=== PATIENT | female | born 1940 | race Caucasian/White ===

== ENCOUNTER 2016-10-04 12:26 | Day surgery (SDC) | payer MEDICARE ==
--- NOTE | 2016-09-27 20:54 | EKG REPORT ---
SEVERITY:- ABNORMAL ECG - ATRIAL-PACED RHYTHM : Confirmed by: Lorelei Galloway MD 27-Sep-2016 20:53:46
[2016-09-28 08:01] LABS: HEMATOCRIT 44.8 % (36.0-47.0); HEMOGLOBIN 14.8 g/dL (12.0-15.5); HGB HCT DIFFERENCE -0.4; MEAN CORPUSCULAR HEMOGLOBIN 30.6 pg (27.0-33.4); MEAN CORPUSCULAR HGB CONC 33.1 g/dL (32.0-36.0); MEAN CORPUSCULAR VOLUME 92 fl (80-97); RED BLOOD COUNT 4.85 10^6/uL (3.72-5.28); RED CELL DISTRIBUTION WIDTH 14.5 % (11.5-14.0); WHITE BLOOD COUNT 7.4 10^3/uL (4.0-10.5)
[2016-09-29 09:37] LABS: BLOOD UREA NITROGEN 24 mg/dL (7-20); CALCIUM 10.8 mg/dL (8.4-10.2); CARBON DIOXIDE 27 mmol/L (22-30); CHLORIDE 105 mmol/L (98-107); CREATININE RESULT 0.89 mg/dL (0.52-1.25); GLUCOSE 94 mg/dL (75-110); POTASSIUM 4.5 mmol/L (3.6-5.0)
[2016-09-29 09:38] LABS: ANION GAP 9 (5-19)
[~2016-10-04 12:26] MED LIST: CIPROFLOXACIN 400 MG/D5W RTU 400 MG/200 ML RTUPB IV PRN; LACTATED RINGERS 1000 ML IV PRN; LIDOCAINE 0.5% INJ-PF (5 MG/ML) 50 ML SDV SUBCUT PRN
[2016-10-04] MEDS ORDERED: LIDOCAINE 1%/EPINEPHRINE INJ 20 ML VIAL ONE (14:50)
[2016-10-04] MEDS ORDERED: MICROFIBRILLAR COLLAGEN 1 GM PACK ONE (14:50)
[2016-10-04] MEDS ORDERED: MIDAZOLAM 2 MG/2 ML INJ ONE (15:34)
[2016-10-04] MEDS ORDERED: FENTANYL CITRATE INJ/PF 100 MCG/2 ML AMPUL ONE (15:34)
[2016-10-04] MEDS ORDERED: PROPOFOL INJ 200 MG/20 ML VIAL IV ONE (15:35)
[2016-10-04] MEDS ORDERED: FENTANYL CITRATE INJ/PF 100 MCG/2 ML AMPUL IV PRN ×3 (16:10)
[2016-10-04] MEDS ORDERED: PROMETHAZINE HCL INJ 25 MG/1 ML VIAL IV PRN ×2 (16:10)
[2016-10-04] MEDS ORDERED: MEPERIDINE HCL/PF INJ 25 MG/1 ML DISP.SYRIN IV PRN (16:10)
[2016-10-04] MEDS ORDERED: DIPHENHYDRAMINE HCL 50 MG/ML VIAL IV PRN (16:10)
--- NOTE | 2016-10-04 16:37 | Operative Report ---
Operative Report DATE OF SURGERY: 10/04/16 PREOPERATIVE DIAGNOSIS: Ectatic left mammary duct, with cystic components POSTOPERATIVE DIAGNOSIS: Same OPERATION: Wedge resection left breast nipple, skin and underlying parenchyma. 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 The patient was then taken to the operating room where LMAC anesthesia was induced. The left arm was abducted, and the left breast prepped and draped in a sterile fashion. Surgical plan and surgical timeout was conducted. Ultrasonography revealed dilated ducts primarily in the 2 3 and 4 o'clock position with cystic components attached. He felt this was the area of disease that warranted resection as the patient was draining from this portion of the nipple. The skin was anesthetized with 1% lidocaine plain we created approximately 4 cm long elliptical incision including the lateral aspect of the left nipple. The diameter Of the skin was approximately 5 mm wide and 4-1/2 cm long. We used a combination of tenotomy and 15 blade to excise a deep triangular shaped wedge of breast parenchyma including the outer lateral aspect of the subareolar tissue and the associated trabeculae of connected cystic disease. This proceeded uneventfully. We terminated the deep resection margin and passed the specimen off to pathology for permanent analysis. Sponge and needle counts are correct. Wound cavity checked for bleeding there was none. An aliquot of Avitene was placed into the recesses of the wound. The nipple and lateral aspect of breast tissue reconstructed with 4-0 Ethilon and 4-0 Vicryl suture. Benzoin Steri-Strips applied. Tolerated the procedure well and taken to recovery room in stable condition. ELVIN Rahman assisted with local anesthetic, tissue extraction of wound and nipple closure.
--- NOTE | 2016-10-04 16:45 | PDOC DISCHARGE SUMMARY ---
Discharge Summary (SDC) - Discharge Final Diagnosis: left breast milk duct excision Date of Surgery: 10/04/16 Discharge Date: 10/04/16 Condition: Stable Treatment or Instructions: [facility] [address], [place] [address] Care Instructions Following Your Lumpectomy Activities: Resume normal activities when you feel comfortable. It is best to remain as active as possible to speed your recovery. It is common to experience some fatigue after surgery and you may find that short naps are helpful. Avoid strenuous activity such as weight lifting, tennis, etc at your surgical site for two weeks. Perform gentle arm exercises daily and do not favor your operative arm to due increased risk of mobility issues postoperatively. No driving for 7 days after surgery. Do not drive if you are taking pain medication other than Tylenol or Ibuprofen. No swimming, tub baths or soaking in a hot tub for 4 weeks. There are no dietary restrictions. Do not smoke as this impairs wound healing. Surgical Site care: Remove your dressing 48 hours after surgery. Leave the steri-strips underneath in place. You may shower after 48 hours, removing the dressing to include washing the wound with soap and water using your hands. Do not scrub the incision. Pat the area dry with a towel. You do not need to recover the wound although some patients find that they feel more comfortable using a light dressing for a few days to absorb any minimal drainage which may occur. If you use a dressing in this manner change it at least every day. Do not use heating pad or apply an ice pack to the operative site. You may apply deodorant if you are careful to avoid getting it on the wound itself. Medications: Take Tylenol every 8 hours around the clock. You may taper this medication as you experience less pain. Take narcotic pain control such as Toradol 10mg every 4-6 hours as needed for pain. Do not take over the counter Ibuprofen or any other NSAID while taking Toradol. Again, you cannot drive while taking narcotic pain medication. Resume all of your normal prescription medications after your surgery unless instructed otherwise. You may experience constipation after surgery while taking pain medications. If using a narcotic on a regular basis, take a stool softener such as Colace twice a day. It is helpful to stay hydrated by drinking lots of fluids. Walking is also helpful and is good exercise after surgery. If you need extra help, use Milk of Magnesia according to the directions on the package. Follow-up: Call our office at to make a follow-up appointment in 10-14 days. Your doctor will call to discuss the pathology report with you as soon as it is available. Concerns: If you had a sentinel lymph node biopsy with your mastectomy, your urine may have a greenish discoloration. This is normal and will resolve as the blue dye slowly leaves your system. If you notice significant leakage around the drains , this is not normal. The drains may be clogged. Please call our office to come in immediately for the drains to be checked. Some bruising may occur and will go away over time. If you have a fever of 101.5 or greater, chills, redness at the incision site, excessive drainage from your wound or severe pain not relieved by pain medication, call your doctor. A physician is available 24 hours a day 7 days a week in addition to regular office hours. If problems arise after normal office hours please call the hospital at . Please call if you have any questions or concerns. Prescriptions: Ketorolac Tromethamine [Toradol 10 mg Tablet] 10 mg PO Q6HP PRN #20 tablet PRN Reason: Discharge Diet: As Tolerated Discharge Activity: Activity As Tolerated Report the Following to Your Physician Immediately: Increase in Pain, Fever over 101 Degrees, Unusual Bleeding, Redness, Swelling, Warmth, Drainage-Foul Smelling
[2016-10-04 18:17] VITALS: BP 126/66
== END 2016-10-04 18:10 | disposition home or self-care (01) ==
LOC: OROUT 12:26
PROVIDERS: ATTEND Surgery
PROC: 0HBU0ZX Excision of Left Breast, Open Approach, Diagnostic (ICD-10-PCS; principal; 2016-10-04 14:15)
DX: N64.52 Nipple discharge (principal); N60.42 Mammary duct ectasia of left breast; N60.32 Fibrosclerosis of left breast; N60.12 Diffuse cystic mastopathy of left breast; I34.1 Nonrheumatic mitral (valve) prolapse; I48.91 Unspecified atrial fibrillation; I12.9 Hypertensive chronic kidney disease with stage 1 through stage 4 chronic kidney disease, or unspecified chronic kidney disease; N18.9 Chronic kidney disease, unspecified; M19.90 Unspecified osteoarthritis, unspecified site; E05.90 Thyrotoxicosis, unspecified without thyrotoxic crisis or storm; Z96.653 Presence of artificial knee joint, bilateral; Z95.0 Presence of cardiac pacemaker; Z85.828 Personal history of other malignant neoplasm of skin; Z88.2 Allergy status to sulfonamides
CPT/HCPCS: 93005; 36415 ×2; 84132; 85027; 80048; 88305 ×2; 93010; 19120; J2250; J3490 ×2; J2704; J0744; 400; J3010

== ENCOUNTER → 2016-10-25 | Outpatient (CLI) | payer MEDICARE ==
[2016-10-25 10:50] LABS: ANION GAP 9 (5-19); BLOOD UREA NITROGEN 23 mg/dL (7-20); CALCIUM 10.2 mg/dL (8.4-10.2); CARBON DIOXIDE 26 mmol/L (22-30); CHLORIDE 106 mmol/L (98-107); CHOLESTEROL 136.66 mg/dL (0-200); CREATININE RESULT 0.93 mg/dL (0.52-1.25); Direct HDL 34 mg/dL (>40); GLUCOSE 92 mg/dL (75-110); POTASSIUM 4.5 mmol/L (3.6-5.0); SODIUM 140.5 mmol/L (137-145); TRIGLYCERIDES 89 mg/dL (<150)
[2016-10-25 11:01] LABS: DIRECT LDL 66 mg/dL (<100)
== END ==
LOC: OD 09:22
PROVIDERS: ATTEND Family Medicine
DX: E78.2 Mixed hyperlipidemia (principal); I10 Essential (primary) hypertension; Z79.899 Other long term (current) drug therapy
CPT/HCPCS: 36415; 80048; 80061; 83036; 84443

== ENCOUNTER → 2016-10-31 | Outpatient (CLI) | payer MEDICARE ==
--- NOTE | 2016-10-31 15:03 | RADIOLOGY REPORT (SQ) ---
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 TECHNIQUE: AP, lateral and oblique weight-bearing radiographic images acquired of the right foot. LIMITATIONS: None. FINDINGS: MINERALIZATION: Normal. BONES: Since the prior films from 11/23/2014, patient has developed osteo necrosis of the 2nd metatars al head, with sclerosis and collapse of the 2nd metatarsal head articular surface. Mild reactive bon y spurring at the base of the 2nd toe proximal phalanx. Mild osteoarthritis with joint space narrowing and bony spurring at the tarsometatarsal and between t he bases of the 2nd through 5th metatarsals. Moderate-sized plantar and dorsal calcaneal spurs. JOINTS: No evidence of tarsal coalition SOFT TISSUES: No soft tissue swelling. No foreign body. OTHER: No other significant finding. 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 TECHNICAL DOCUMENTATION: JOB ID: [id number] [employer]- All Rights Reserved
== END ==
LOC: OD 12:19
PROVIDERS: ATTEND Podiatrist Foot & Ankle Surgery
DX: Q66.9 Congenital deformity of feet, unspecified (principal)

== ENCOUNTER → 2016-11-03 | Outpatient (CLI) | payer MEDICARE ==
[2016-11-03 10:14] LABS: ABSOLUTE BASOPHILS # (AUTO) 0.1 10^3/uL (0.0-0.2); ABSOLUTE EOSINOPHILS # (AUTO) 0.2 10^3/uL (0.0-0.6); ABSOLUTE LYMPHOCYTES (AUTO) 1.5 10^3/uL (0.5-4.7); ABSOLUTE MONOCYTES (AUTO) 0.6 10^3/uL (0.1-1.4); ABSOLUTE NEUT (AUTO) 5.6 10^3/uL (1.7-8.2); BASOPHILS % (AUTO) 0.7 % (0-2); EOSINOPHILS % (AUTO) 2.2 % (0-6); HEMOGLOBIN 14.1 g/dL (12.0-15.5); HGB HCT DIFFERENCE -0.7; LYMPHOCYTES % (AUTO) 18.8 % (13-45); MEAN CORPUSCULAR HEMOGLOBIN 30.3 pg (27.0-33.4); MEAN CORPUSCULAR HGB CONC 32.8 g/dL (32.0-36.0); MEAN CORPUSCULAR VOLUME 92 fl (80-97); RED BLOOD COUNT 4.65 10^6/uL (3.72-5.28); RED CELL DISTRIBUTION WIDTH 14.2 % (11.5-14.0); SEGMENTED NEUTROPHILS % (AUTO) 70.3 % (42-78); WHITE BLOOD COUNT 7.9 10^3/uL (4.0-10.5)
[2016-11-03 10:36] LABS: ANION GAP 10 (5-19); BLOOD UREA NITROGEN 30 mg/dL (7-20); CALCIUM 10.3 mg/dL (8.4-10.2); CARBON DIOXIDE 24 mmol/L (22-30); CHLORIDE 108 mmol/L (98-107); GLUCOSE 96 mg/dL (75-110); POTASSIUM 4.5 mmol/L (3.6-5.0); SODIUM 142.2 mmol/L (137-145)
== END ==
LOC: OD 09:35
PROVIDERS: ATTEND Internal Medicine Nephrology
DX: N18.2 Chronic kidney disease, stage 2 (mild) (principal); E83.52 Hypercalcemia
CPT/HCPCS: 36415; 80048; 82040; 85025

== ENCOUNTER → 2016-11-08 | Outpatient (CLI) | payer MEDICARE ==
[2016-11-08 16:27] LABS: APPEARANCE,URINE SLIGHTLY-CLOUDY; BILIRUBIN,URINE NEGATIVE (NEGATIVE); GLUCOSE, URINE NEGATIVE (NEGATIVE); KETONES,URINE NEGATIVE (NEGATIVE); LEUKOCYTE ESTERASE,URINE LARGE (NEGATIVE); NITRITE,URINE NEGATIVE (NEGATIVE); PROTEIN,URINE NEGATIVE (NEGATIVE); UROBILINOGEN,URINE NEGATIVE mg/dL (<2.0)
[2016-11-08 16:34] LABS: BACTERIA,URINE TRACE /HPF; RBC,URINE 0-1 /HPF
[2016-11-10 11:54] LABS: VITAMIN D 25-HYDROXY 35.4 ng/mL (30.0-100.0)
[2016-11-10 12:38] LABS: CREATININE URINE 56.9 mg/dL (Not Estab.); MICROALBUMIN URINE <3.0 ug/mL (Not Estab.)
== END ==
LOC: OD 15:19
PROVIDERS: ATTEND Internal Medicine Nephrology
DX: N18.2 Chronic kidney disease, stage 2 (mild) (principal); E83.52 Hypercalcemia
CPT/HCPCS: 36415; 81001; 82043; 82306; 82570; 83970; 84100

== ENCOUNTER → 2016-11-24 | Outpatient (CLI) | payer MEDICARE | LOC: OD 14:41 | PROVIDERS: ATTEND Physician Assistant | DX: M17.12 Unilateral primary osteoarthritis, left knee (principal) | CPT/HCPCS: 36415; 85652; 86140 ==

== ENCOUNTER → 2017-06-04 | Outpatient (CLI) | payer MEDICARE ==
[2017-06-04 15:26] LABS: ANION GAP 6 (5-19); BLOOD UREA NITROGEN 33 mg/dL (7-20); CALCIUM 11.1 mg/dL (8.4-10.2); CARBON DIOXIDE 28 mmol/L (22-30); CHLORIDE 106 mmol/L (98-107); GLUCOSE 77 mg/dL (75-110); POTASSIUM 4.4 mmol/L (3.6-5.0); SODIUM 139.5 mmol/L (137-145)
== END ==
LOC: OD 14:14
PROVIDERS: ATTEND Internal Medicine Nephrology
DX: N18.3 Chronic kidney disease, stage 3 (moderate) (principal)
CPT/HCPCS: 36415; 80048

== ENCOUNTER → 2017-08-30 | Outpatient (CLI) | payer MEDICARE ==
[2017-08-30 15:47] LABS: ANION GAP 10 (5-19); BLOOD UREA NITROGEN 26 mg/dL (7-20); CALCIUM 11.2 mg/dL (8.4-10.2); CARBON DIOXIDE 27 mmol/L (22-30); CHLORIDE 105 mmol/L (98-107); GLUCOSE 94 mg/dL (75-110); POTASSIUM 4.1 mmol/L (3.6-5.0); SODIUM 141.9 mmol/L (137-145)
== END ==
LOC: OD 14:45
PROVIDERS: ATTEND Internal Medicine Nephrology
DX: N18.3 Chronic kidney disease, stage 3 (moderate) (principal); E83.52 Hypercalcemia
CPT/HCPCS: 36415; 80048

== ENCOUNTER → 2017-10-25 | Outpatient (CLI) | payer MEDICARE ==
--- NOTE | 2017-10-25 15:12 | RADIOLOGY REPORT (SQ) ---
EXAM DESCRIPTION: CHEST PA/LATERAL COMPLETED DATE/TIME: 10/25/2017 3:04 pm REASON FOR STUDY: COUGH COMPARISON: October 2011 EXAM PARAMETERS: NUMBER OF VIEWS: two views TECHNIQUE: Digital Frontal and Lateral radiographic views of the chest acquired. RADIATION DOSE: NA LIMITATIONS: none FINDINGS: LUNGS AND PLEURA: No opacities, masses or pneumothorax. No pleural effusion. MEDIASTINUM AND HILAR STRUCTURES: No masses or contour abnormalities. HEART AND VASCULAR STRUCTURES: Cardiac silhouette is at the upper limits of normal in size. BONES: No acute findings. HARDWARE: Pool chamber transvenous pacemaker is identified in position. OTHER: No other significant finding. IMPRESSION: NO SIGNIFICANT RADIOGRAPHIC FINDING IN THE CHEST. TECHNICAL DOCUMENTATION: JOB ID: [id number] [employer]- All Rights Reserved Reading location - IP/workstation name: [email or web address]
== END ==
LOC: OD 14:53
PROVIDERS: ATTEND Physician Assistant
DX: R05 Cough (principal)
CPT/HCPCS: 71046

== ENCOUNTER → 2017-11-01 | Outpatient (CLI) | payer MEDICARE ==
[2017-11-01 11:11] LABS: ANION GAP 9 (5-19); BLOOD UREA NITROGEN 31 mg/dL (7-20); CARBON DIOXIDE 30 mmol/L (22-30); CHLORIDE 104 mmol/L (98-107); CHOLESTEROL 147.54 mg/dL (0-200); GLUCOSE 95 mg/dL (75-110); POTASSIUM 4.7 mmol/L (3.6-5.0); SODIUM 142.8 mmol/L (137-145); TRIGLYCERIDES 121 mg/dL (<150)
[2017-11-01 11:22] LABS: DIRECT LDL 71 mg/dL (<100)
== END ==
LOC: OD 10:02
PROVIDERS: ATTEND Family Medicine
DX: E78.2 Mixed hyperlipidemia (principal); I10 Essential (primary) hypertension; Z79.899 Other long term (current) drug therapy
CPT/HCPCS: 36415; 80048; 80061; 83036; 84443

== ENCOUNTER → 2017-11-12 | Outpatient (CLI) | payer MEDICARE ==
--- NOTE | 2017-11-12 17:18 | RADIOLOGY REPORT (SQ) ---
EXAM DESCRIPTION: NM PARATHYROID IMAGING COMPLETED DATE/TIME: 11/12/2017 3:20 pm REASON FOR STUDY: CHRONIC KIDNEY DISEASE, STAGE 2 (MILD) E55.9 VITAMIN D DEFICIENCY, UNSPECIFIED E8 3.52 HYPERCALCEMIA N18.2 CHRONIC KIDNEY DISEASE, STAGE 2 (MILD) COMPARISON: None. RADIONUCLIDE AND DOSE: 20.9 millicuries Tc-99m Sestamibi. The route of agent administration: Intravenous ADDITIONAL DRUGS AND DOSES: None. TECHNIQUE: Early and delayed images of the neck acquired following radionuclide administration. LIMITATIONS: None. FINDINGS: Thyroid: Normal size. Homogeneous activity. Normal washout. No focal lesions. Parathyroid: No retained activity in the thyroid or elsewhere in the neck to indicate a parathyroid a denoma. Other: No other significant findings. IMPRESSION: NORMAL STUDY. NO EVIDENCE OF PARATHYROID ADENOMA. TECHNICAL DOCUMENTATION: JOB ID: [id number] [employer]- All Rights Reserved Reading location - IP/workstation name: [email or web address]
== END ==
LOC: RAD 10:54
PROVIDERS: ATTEND Internal Medicine Nephrology
DX: N18.2 Chronic kidney disease, stage 2 (mild) (principal); E83.52 Hypercalcemia; E55.9 Vitamin D deficiency, unspecified; E21.0 Primary hyperparathyroidism
CPT/HCPCS: 78070; A9500; Q9969

== ENCOUNTER → 2018-01-15 | Outpatient (CLI) | payer MEDICARE ==
[2018-01-15 12:46] LABS: ABSOLUTE LYMPHOCYTES (AUTO) 1.5 10^3/uL (0.5-4.7); ABSOLUTE MONOCYTES (AUTO) 0.7 10^3/uL (0.1-1.4); ABSOLUTE NEUT (AUTO) 8.1 10^3/uL (1.7-8.2); BASOPHILS % (AUTO) 0.4 % (0-2); EOSINOPHILS % (AUTO) 0.1 % (0-6); HEMATOCRIT 42.7 % (36.0-47.0); HEMOGLOBIN 14.5 g/dL (12.0-15.5); LYMPHOCYTES % (AUTO) 14.3 % (13-45); MEAN CORPUSCULAR HEMOGLOBIN 31.7 pg (27.0-33.4); MEAN CORPUSCULAR VOLUME 93 fl (80-97); MONOCYTES % (AUTO) 6.5 % (3-13); PLATELET COUNT 210 10^3/uL (150-450); RED BLOOD COUNT 4.59 10^6/uL (3.72-5.28); RED CELL DISTRIBUTION WIDTH 14.5 % (11.5-14.0); SEGMENTED NEUTROPHILS % (AUTO) 78.7 % (42-78); TOTAL CELLS COUNTED % (AUTO) 100 %; WHITE BLOOD COUNT 10.3 10^3/uL (4.0-10.5)
[2018-01-15 12:47] LABS: APPEARANCE,URINE CLEAR; BILIRUBIN,URINE NEGATIVE (NEGATIVE); COLOR,URINE STRAW; GLUCOSE, URINE NEGATIVE (NEGATIVE); KETONES,URINE NEGATIVE (NEGATIVE); LEUKOCYTE ESTERASE,URINE TRACE (NEGATIVE); NITRITE,URINE NEGATIVE (NEGATIVE); PROTEIN,URINE NEGATIVE (NEGATIVE); URINE SPECIFIC GRAVITY 1.008; UROBILINOGEN,URINE NEGATIVE mg/dL (<2.0)
[2018-01-15 13:37] LABS: ANION GAP 7 (5-19); BLOOD UREA NITROGEN 25 mg/dL (7-20); CALCIUM 10.2 mg/dL (8.4-10.2); CARBON DIOXIDE 28 mmol/L (22-30); CHLORIDE 106 mmol/L (98-107); GLUCOSE 102 mg/dL (75-110); PHOSPHORUS 2.8 mg/dL (2.5-4.5); POTASSIUM 4.7 mmol/L (3.6-5.0)
[2018-01-16 12:38] LABS: CREATININE URINE 24.6 mg/dL (Not Estab.)
[2018-01-16 13:43] LABS: MICROALBUMIN URINE <3.0 ug/mL (Not Estab.)
== END ==
LOC: OD 11:56
PROVIDERS: ATTEND Internal Medicine Nephrology
DX: N18.2 Chronic kidney disease, stage 2 (mild) (principal); E83.52 Hypercalcemia; E55.9 Vitamin D deficiency, unspecified
CPT/HCPCS: 36415; 80048; 81001; 82040; 82043; 82306; 82570; 83970; 84100; 85025

== ENCOUNTER 2018-04-23 10:04 | Emergency (ER) | payer MEDICARE ==
--- NOTE | 2018-04-23 10:30 | ER Document Report ---
ED Medical Screen (RME) - General Chief Complaint: High Blood Pressure Stated Complaint: BLOOD PRESSURE/HEARTRATE ISSUE Time Seen by Provider: 04/23/18 10:17 TRAVEL OUTSIDE OF THE [place] IN LAST 30 DAYS: No - HPI Notes: 04/23/18 10:29 Patient is a 77-year-old female that presents to the emergency department for chief complaint of nausea and thigh pain. Patient had lumbar spinal surgery in [place] by Dr. Higgins recently. She reports bilateral thigh pain, right slightly worse than left for the last week. Patient also reports nausea, decreased appetite and "feeling sick". She denies fever, chest pain, shortness of breath. ROS: GENERAL: Denies fever of chills CV: Denies chest pain PHYSICAL EXAMINATION: GENERAL: Well-appearing, well-nourished and in no acute distress. HEAD: Atraumatic, normocephalic. EYES: Pupils equal round extraocular movements intact, conjunctiva are normal. ENT: Nares patent NECK: Normal range of motion LUNGS: No respiratory distress Musculoskeletal: Normal range of motion NEUROLOGICAL: Normal speech, normal gait. PSYCH: Normal mood, normal affect. MDM: Patient seen and examined for rapid initial assessment. Vital signs reviewed. A comprehensive ED assessment and evaluation of the patient, analysis of test results and completion of the medical decision making process will be conducted by additional ED providers. 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 Denies: Hx Mastectomy, Hx Pacemaker - Immunizations Hx Diphtheria, Pertussis, Tetanus Vaccination: Yes - MORE THAN 10YRS Physical Exam - Vital signs Vitals: Temp Pulse Resp BP Pulse Ox 97.9 F 73 16 187/65 H 100 04/23/18 10:12 04/23/18 10:12 04/23/18 10:12 04/23/18 10:12 04/23/18 10:12 Course - Vital Signs Vital signs: Temp Pulse Resp BP Pulse Ox 97.9 F 73 16 187/65 H 100 04/23/18 10:12 04/23/18 10:12 04/23/18 10:12 04/23/18 10:12 04/23/18 10:12 Doctor's Discharge - Discharge Referrals: ADE PAYNE MD [Primary Care Provider] - Follow up as needed
[2018-04-23 11:04] LABS: APPEARANCE,URINE CLEAR; BILIRUBIN,URINE NEGATIVE (NEGATIVE); COLOR,URINE STRAW; GLUCOSE, URINE NEGATIVE (NEGATIVE); KETONES,URINE NEGATIVE (NEGATIVE); LEUKOCYTE ESTERASE,URINE TRACE (NEGATIVE); NITRITE,URINE NEGATIVE (NEGATIVE); PROTEIN,URINE NEGATIVE (NEGATIVE); URINE SPECIFIC GRAVITY 1.003; UROBILINOGEN,URINE NEGATIVE mg/dL (<2.0)
[2018-04-23] MEDS ORDERED: FENTANYL CITRATE INJ/PF 100 MCG/2 ML AMPUL IV ONE ×4 (11:09→17:29)
[2018-04-23] MEDS ORDERED: ONDANSETRON HCL INJ/PF 4 MG/2 ML SDV IV ONE ×2 (11:09→17:30)
[2018-04-23 11:10] LABS: HEMATOCRIT 25.2 % (36.0-47.0); HEMOGLOBIN 8.8 g/dL (12.0-15.5); MEAN CORPUSCULAR VOLUME 92 fl (80-97); PLATELET COUNT 312 10^3/uL (150-450); RED BLOOD COUNT 2.75 10^6/uL (3.72-5.28); RED CELL DISTRIBUTION WIDTH 13.9 % (11.5-14.0); WHITE BLOOD COUNT 10.3 10^3/uL (4.0-10.5)
--- NOTE | 2018-04-23 11:14 | ER Document Report ---
ED General - General Chief Complaint: High Blood Pressure Stated Complaint: BLOOD PRESSURE/HEARTRATE ISSUE Time Seen by Provider: 04/23/18 10:17 Mode of Arrival: Medic Information source: Patient Notes: Patient presents complaining of elevated blood pressure and heart rate today as well as generalized weak feeling. Patient complains of bilateral thigh tenderness to anterior aspect of both thighs. Patient is one-week status post a lumbar spinal fusion of the L3 S1 area. Patient is denies any fever, chest pain or shortness of breath. Patient does complain of decreased appetite with nausea. Patient states that her pain medication has not been managing her symptoms, although she has not had it today. Patient states that she normally has a heart rate in the 40s-50s and so a heart rate in the 70s is very fast for her. Patient does state that during the surgery she had both a midline lumbar incision as well as a left lateral side incision. Patient does recall someone mentioning that she did have some bleeding although patient denies any additional bleeding since the surgery. Patient denies any significant back pain or left side pain at the site of her incisions. Patient states the pain to the legs is more painful than her back. TRAVEL OUTSIDE OF THE [place] IN LAST 30 DAYS: No - HPI Onset: Other - 4-5 days Onset/Duration: Worse Quality of pain: Achy Pain Level: 5 Associated symptoms: Nausea, Other - Bilateral thigh tenderness. denies: Chest pain, Nonproductive cough, Productive cough, Diarrhea, Fever, Vomiting Exacerbated by: Movement Relieved by: Denies Similar symptoms previously: No Recently seen / treated by doctor: Yes - Related Data Allergies/Adverse Reactions: Penicillins Allergy (Severe, Verified 04/23/18 10:05) Anaphylaxis hydromorphone [From Dilaudid] Allergy (Verified 04/23/18 10:05) Past Medical History - General Information source: Patient - Social History Smoking Status: Never Smoker Frequency of alcohol use: None Drug Abuse: None Occupation: None Family History: Reviewed & Not Pertinent Patient has suicidal ideation: No Patient has homicidal ideation: No - Past Medical History Cardiac Medical History: Reports: Hx Atrial Fibrillation, Hx Hypercholesterolemia, Hx Hypertension, Other - Sick sinus syndrome Denies: Hx Coronary Artery Disease, Hx Heart Attack Pulmonary Medical History: Denies: Hx Asthma, Hx Bronchitis, Hx COPD, Hx Pneumonia Neurological Medical History: Denies: Hx Cerebrovascular Accident, Hx Seizures Endocrine Medical History: Reports: Hx Hypothyroidism Renal/ Medical History: Denies: Hx Peritoneal Dialysis Malignancy Medical History: Reports: Other - Bladder cancer GI Medical History: Reports: 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 Denies: Hx Mastectomy, Hx Pacemaker - Immunizations Hx Diphtheria, Pertussis, Tetanus Vaccination: Yes - MORE THAN 10YRS Review of Systems - Review of Systems Constitutional: Weakness. denies: Chills, Fever, Recent illness EENT: No symptoms reported Cardiovascular: Other - fast heart rate for patient in the 70s. denies: Chest pain Respiratory: No symptoms reported. denies: Cough, Short of breath Gastrointestinal: Nausea. denies: Abdominal pain, Diarrhea, Vomiting Genitourinary: No symptoms reported. denies: Dysuria, Flank pain Female Genitourinary: No symptoms reported Musculoskeletal: Back pain, Muscle pain - Bilateral anterior thigh muscle tenderness Skin: No symptoms reported Hematologic/Lymphatic: No symptoms reported Neurological/Psychological: No symptoms reported Physical Exam - Vital signs Vitals: Temp Pulse Resp BP Pulse Ox 97.9 F 73 16 187/65 H 100 04/23/18 10:12 04/23/18 10:12 04/23/18 10:12 04/23/18 10:12 04/23/18 10:12 - General General appearance: Appears well, Alert In distress: None - HEENT Head: Normocephalic, Atraumatic Eyes: Normal Conjunctiva: Normal Pupils: PERRL Nasal: Normal Mouth/Lips: Normal Mucous membranes: Normal Neck: Normal, Supple. No: Lymphadenopathy - Respiratory Respiratory status: No respiratory distress Chest status: Nontender Breath sounds: Normal. No: Rales, Rhonchi, Stridor, Wheezing Chest palpation: Normal - Cardiovascular Rhythm: Regular Heart sounds: S1 appreciated, S2 appreciated - Abdominal Inspection: Obese Distension: No distension Bowel sounds: Normal Tenderness: Nontender Organomegaly: No organomegaly - Back Back: Wounds - Large stapled wound to lumbar spine, wound edges approximated, no surrounding area edema Notes: Additional incision covered with surgical tape to the lateral side with surrounding ecchymosis - Extremities General upper extremity: Normal inspection, Nontender, Normal ROM, Normal strength General lower extremity: Tender - Bilateral side tenderness, Edema - 1+ edema to bilateral lower extremities, Normal color, Normal ROM, Normal strength, Normal temperature Hip: Normal, Nontender Thigh: Tender - Bilateral thigh generalized tenderness to anterior aspect. No: Ecchymosis, Instability Knee: Normal, Nontender Calf: Nontender Ankle: Normal, Nontender - Neurological Neuro grossly intact: Yes Cognition: Normal [place] Coma Scale Eye Opening: Spontaneous [place]ide[place] Coma Scale Verbal: Oriented Aide[place] Coma Scale Motor: Obeys Commands Aidee Coma Scale Total: 15 - Psychological Associated symptoms: Normal affect, Normal mood - Skin Skin Temperature: Warm Skin Moisture: Dry Skin Color: Ecchymosis - Left lateral side around lateral incision Course - Re-evaluation Re-evalutation: 04/23/18 13:[address] Smith regarding patient presentation, recommends obtaining Hemoccult and then using the results of that to determine what type of CT imaging to order whether or not she needs IV and oral contrast. 04/23/18 18:26 Call placed to the transfer center at [facility]. 04/23/18 19:[address] Reeder who is on-call for Dr. Snow at [facility]. Discussed patient's presentation, pain complaints, vital signs as well as diagnostic tests including concern about retroperitoneal hemorrhage in addition to heme positive stool and concerned about complications postoperatively. Dr. Reeder does not feel that patient requires transfer and that she can be managed on an outpatient basis. States that she is not tachycardic and that she should be given a liter of fluids and advised to discontinue her aspirin. Also recommends having patient follow-up with her primary doctor for further evaluation of heme-positive stool. Dr. Luu states that it is normal to have a retroperitoneal hematoma after surgery such as hers. States that patient would not require transfusion. Recommends having patient follow-up with Dr. Snow on an outpatient basis. 04/23/18 19:[address] Smith about conversation with Dr. Reeder. Recommends consultation with our general surgeon. Consulted with Dr. Lay who advises adding on coagulation test, does recommend giving patient a liter of fluid and will evaluate patient. Dr. Lay states that patient can likely be managed on an outpatient basis 04/23/18 19:47 Dr. Lay to bedside for examination. States that as long as coagulation test results are normal and patient's vital signs were okay after IV fluids that she can be discharged home to follow-up with her surgeon and primary doctor on outpatient basis. Patient does have some wheezing at this time, nebulizer treatment has been ordered. Son at bedside and updated on the patient 's presentation and plan of care at this time. 04/23/18 20:19 IV fluids continue to infuse. Patient with increased air movement after nebulizer treatment. Bedside report and handout given to Annette OCONNOR - Vital Signs Vital signs: Temp Pulse Resp BP Pulse Ox 97.9 F 73 14 168/69 H 99 04/23/18 10:12 04/23/18 10:12 04/23/18 13:08 04/23/18 13:08 04/23/18 11:02 - Laboratory Result Diagrams: 04/23/18 18:09 04/23/18 11:00 Laboratory results interpreted by me: 04/23/18 04/23/18 04/23/18 10:30 11:00 11:00 WBC RBC 2.75 L Hgb 8.8 L Hct 25.2 L RDW Seg Neuts % (Manual) 80 H Lymphocytes % (Manual) 8 L Potassium 3.3 L Glucose 128 H AST 66 H ALT 87 H Total Protein 6.0 L Ur Leukocyte Esterase TRACE H 04/23/18 18:09 WBC 10.7 H RBC 2.76 L Hgb 8.7 L Hct 25.4 L RDW 14.4 H Seg Neuts % (Manual) Lymphocytes % (Manual) Potassium Glucose AST ALT Total Protein Ur Leukocyte Esterase Labs- Entire Visit 04/23/18 04/23/18 04/23/18 10:30 11:00 11:00 WBC 10.3 RBC 2.75 L Hgb 8.8 L Hct 25.2 L MCV 92 MCH 32.0 MCHC 35.0 RDW 13.9 Plt Count 312 Total Counted 100 Seg Neutrophils % Not Reportable Seg Neuts % (Manual) 80 H Lymphocytes % Not Reportable Lymphocytes % (Manual) 8 L Monocytes % Not Reportable Monocytes % (Manual) 10 Eosinophils % Not Reportable Eosinophils % (Manual) 2 Basophils % Not Reportable Basophils % (Manual) 0 Absolute Neutrophils Not Reportable Abs Neuts (Manual) 8.2 Absolute Lymphocytes Not Reportable Abs Lymphs (Manual) 0.8 Absolute Monocytes Not Reportable Abs Monocytes (Manual) 1.0 Absolute Eosinophils Not Reportable Absolute Eos (Manual) 0.2 Absolute Basophils Not Reportable Abs Basophils (Manual) 0.0 Toxic Granulation SLIGHT Platelet Comment ADEQUATE RBC Morph Comment NORMO-CYTIC/CHROMIC PT INR APTT Sodium 140.9 Potassium 3.3 L Chloride 103 Carbon Dioxide 28 Anion Gap 10 BUN 10 Creatinine 0.64 Est GFR ( Amer) > 60 Est GFR (Non-Af Amer) > 60 Glucose 128 H Calcium 9.5 Magnesium Total Bilirubin 0.7 Direct Bilirubin 0.2 Neonat Total Bilirubin Not Reportable Neonat Direct Bilirubin Not Reportable Neonat Indirect Bili Not Reportable AST 66 H ALT 87 H Alkaline Phosphatase 86 Creatine Kinase Troponin I Total Protein 6.0 L Albumin 3.5 Lipase 30.4 Urine Color STRAW Urine Appearance CLEAR Urine pH 6.0 Ur Specific [place] 1.003 Urine Protein NEGATIVE Urine Glucose (UA) NEGATIVE Urine Ketones NEGATIVE Urine Blood NEGATIVE Urine Nitrite NEGATIVE Urine Bilirubin NEGATIVE Urine Urobilinogen NEGATIVE Ur Leukocyte Esterase TRACE H Urine WBC (Auto) 3 Urine RBC (Auto) 0 Squamous Epi Cells Auto <1 Urine Mucus (Auto) RARE Urine Ascorbic Acid NEGATIVE Stool Occult Blood Blood Type Antibody Screen 04/23/18 04/23/18 04/23/18 11:00 11:00 11:00 WBC RBC Hgb Hct MCV MCH MCHC RDW Plt Count Total Counted Seg Neutrophils % Seg Neuts % (Manual) Lymphocytes % Lymphocytes % (Manual) Monocytes % Monocytes % (Manual) Eosinophils % Eosinophils % (Manual) Basophils % Basophils % (Manual) Absolute Neutrophils Abs Neuts (Manual) Absolute Lymphocytes Abs Lymphs (Manual) Absolute Monocytes Abs Monocytes (Manual) Absolute Eosinophils Absolute Eos (Manual) Absolute Basophils Abs Basophils (Manual) Toxic Granulation Platelet Comment RBC Morph Comment PT INR APTT Sodium Potassium Chloride Carbon Dioxide Anion Gap BUN Creatinine Est GFR ( Amer) Est GFR (Non-Af Amer) Glucose Calcium Magnesium 2.2 Total Bilirubin Direct Bilirubin Neonat Total Bilirubin Neonat Direct Bilirubin Neonat Indirect Bili AST ALT Alkaline Phosphatase Creatine Kinase 108 Troponin I < 0.012 Total Protein Albumin Lipase Urine Color Urine Appearance Urine pH Ur Specific [place] Urine Protein Urine Glucose (UA) Urine Ketones Urine Blood Urine Nitrite Urine Bilirubin Urine Urobilinogen Ur Leukocyte Esterase Urine WBC (Auto) Urine RBC (Auto) Squamous Epi Cells Auto Urine Mucus (Auto) Urine Ascorbic Acid Stool Occult Blood Blood Type Antibody Screen 04/23/18 04/23/18 04/23/18 13:30 18:09 18:09 WBC 10.7 H RBC 2.76 L Hgb 8.7 L Hct 25.4 L MCV 92 MCH 31.4 MCHC 34.2 RDW 14.4 H Plt Count 314 Total Counted Seg Neutrophils % Seg Neuts % (Manual) Lymphocytes % Lymphocytes % (Manual) Monocytes % Monocytes % (Manual) Eosinophils % Eosinophils % (Manual) Basophils % Basophils % (Manual) Absolute Neutrophils Abs Neuts (Manual) Absolute Lymphocytes Abs Lymphs (Manual) Absolute Monocytes Abs Monocytes (Manual) Absolute Eosinophils Absolute Eos (Manual) Absolute Basophils Abs Basophils (Manual) Toxic Granulation Platelet Comment RBC Morph Comment PT 13.5 INR 0.98 APTT 33.2 Sodium Potassium Chloride Carbon Dioxide Anion Gap BUN Creatinine Est GFR ( Amer) Est GFR (Non-Af Amer) Glucose Calcium Magnesium Total Bilirubin Direct Bilirubin Neonat Total Bilirubin Neonat Direct Bilirubin Neonat Indirect Bili AST ALT Alkaline Phosphatase Creatine Kinase Troponin I Total Protein Albumin Lipase Urine Color Urine Appearance Urine pH Ur Specific [place] Urine Protein Urine Glucose (UA) Urine Ketones Urine Blood Urine Nitrite Urine Bilirubin Urine Urobilinogen Ur Leukocyte Esterase Urine WBC (Auto) Urine RBC (Auto) Squamous Epi Cells Auto Urine Mucus (Auto) Urine Ascorbic Acid Stool Occult Blood POSITIVE Blood Type Antibody Screen 04/23/18 18:25 WBC RBC Hgb Hct MCV MCH MCHC RDW Plt Count Total Counted Seg Neutrophils % Seg Neuts % (Manual) Lymphocytes % Lymphocytes % (Manual) Monocytes % Monocytes % (Manual) Eosinophils % Eosinophils % (Manual) Basophils % Basophils % (Manual) Absolute Neutrophils Abs Neuts (Manual) Absolute Lymphocytes Abs Lymphs (Manual) Absolute Monocytes Abs Monocytes (Manual) Absolute Eosinophils Absolute Eos (Manual) Absolute Basophils Abs Basophils (Manual) Toxic Granulation Platelet Comment RBC Morph Comment PT INR APTT Sodium Potassium Chloride Carbon Dioxide Anion Gap BUN Creatinine Est GFR ( Amer) Est GFR (Non-Af Amer) Glucose Calcium Magnesium Total Bilirubin Direct Bilirubin Neonat Total Bilirubin Neonat Direct Bilirubin Neonat Indirect Bili AST ALT Alkaline Phosphatase Creatine Kinase Troponin I Total Protein Albumin Lipase Urine Color Urine Appearance Urine pH Ur Specific [place] Urine Protein Urine Glucose (UA) Urine Ketones Urine Blood Urine Nitrite Urine Bilirubin Urine Urobilinogen Ur Leukocyte Esterase Urine WBC (Auto) Urine RBC (Auto) Squamous Epi Cells Auto Urine Mucus (Auto) Urine Ascorbic Acid Stool Occult Blood Blood Type O NEGATIVE Antibody Screen NEGATIVE - Diagnostic Test Radiology reviewed: Reports reviewed Discharge - Discharge Clinical Impression: Postoperative pain after spinal surgery, Retroperitoneal hematoma, Hypokalemia , Wheezing Anemia Qualifiers: Anemia type: other cause Other causes of anemia: acute posthemorrhagic Qualified Code(s): D62 - Acute posthemorrhagic anemia Leg pain Qualifiers: Laterality: bilateral Qualified Code(s): M79.604 - Pain in right leg; M79.605 - Pain in left leg; M79.605 - Pain in left leg Instructions: Hypokalemia ([facility]), Inhaled Bronchodilators ([facility]) Additional Instructions: Return immediately for any new or worsening symptoms Followup with your primary care provider, call tomorrow to make a followup appointment Call your orthopedic surgeon first thing tomorrow and let them know that you were seen for a retroperitoneal hematoma and that her hemoglobin had dropped to 8.7. They may want to follow-up with you sooner than your planned follow-up appointment. Call your primary doctor and advised him that she had a positive Hemoccult stool test that will need further evaluation including a colonoscopy. Your potassium level was also low today. You will need to increase foods high in potassium in your diet and have your primary doctor recheck this test result for you. Take your pain medication and muscle relaxer that you have at home as prescribed Do not take anymore aspirin. Referrals: ADE PAYNE MD [Primary Care Provider] - Follow up as needed DEJA WHITE MD [HONORARY] - Follow up tomorrow
[2018-04-23 11:35] LABS: BLOOD UREA NITROGEN 10 mg/dL (7-20); CALCIUM 9.5 mg/dL (8.4-10.2); GLUCOSE 128 mg/dL (75-110)
[2018-04-23 11:36] LABS: ALANINE AMINOTRANSFERASE 87 U/L (9-52); ALBUMIN 3.5 g/dL (3.5-5.0); ALKALINE PHOSPHATASE 86 U/L (38-126); ANION GAP 10 (5-19); ASPARTATE AMINO TRANSFERASE 66 U/L (14-36); BILIRUBIN,DIRECT 0.2 mg/dL (0.0-0.4); BILIRUBIN,TOTAL 0.7 mg/dL (0.2-1.3); CARBON DIOXIDE 28 mmol/L (22-30); CHLORIDE 103 mmol/L (98-107); LIPASE 30.4 U/L (23-300); POTASSIUM 3.3 mmol/L (3.6-5.0); SODIUM 140.9 mmol/L (137-145)
[2018-04-23 11:54] LABS: ABSOLUTE LYMPHOCYTES# (MANUAL) 0.8 10^3/uL (0.5-4.7); ABSOLUTE NEUTROPHILS# (MANUAL) 8.2 10^3/uL (1.7-8.2); BASOPHILS % (MANUAL) 0 % (0-2); EOSINOPHILS % (MANUAL) 2 % (0-6); LYMPHOCYTES % (MANUAL) 8 % (13-45); MONOCYTES % (MANUAL) 10 % (3-13); SEGMENTED NEUTROPHILS % (MAN) 80 % (42-78); TOTAL CELLS COUNTED 100
[2018-04-23 11:57] LABS: PLATELET COMMENT ADEQUATE; RBC MORPHOLOGY COMMENT NORMO-CYTIC/CHROMIC; TOXIC GRANULATION SLIGHT
[2018-04-23] MEDS ORDERED: POTASSIUM CHLORIDE 10 MEQ CAPSULE.ER PO ONE (12:37)
--- NOTE | 2018-04-23 12:38 | RADIOLOGY REPORT (SQ) ---
EXAM DESCRIPTION: VENOUS BILATERAL LOWER COMPLETED DATE/TIME: 04/23/2018 12:22 pm REASON FOR STUDY: bilat thigh pain, hx recent surgery COMPARISON: None. TECHNIQUE: Dynamic and static pereira scale and color images acquired of both lower extremity venous sy stems. Selected spectral images acquired with additional compression and augmentation maneuvers. Imag es stored on PACS. LIMITATIONS: None. FINDINGS: RIGHT LEG COMMON FEMORAL AND FEMORAL: Normal phasicity, compression and augmentation. No visualized echogenic m aterial on pereira scale. No defects on color images. POPLITEAL: Normal compression and augmentation. No visualized echogenic material on pereira scale. No de fects on color images. CALF VESSELS: Normal compression and augmentation. No visualized echogenic material on pereira scale. No defects on color image. GSV AND SSV: Normal compression. No visualized echogenic material on pereira scale. No defects on color images. ANY DEEP VENOUS INSUFFICIENCY: Not evaluated. ANY EVIDENCE OF POPLITEAL CYST: No. OTHER: No other significant finding. LEFT LEG COMMON FEMORAL AND FEMORAL: Normal phasicity, compression and augmentation. No visualized echogenic m aterial on pereira scale. No defects on color images. POPLITEAL: Normal compression and augmentation. No visualized echogenic material on pereira scale. No de fects on color images. CALF VESSELS: Normal compression and augmentation. No visualized echogenic material on pereira scale. No defects on color images. GSV AND SSV: Normal compression. No visualized echogenic material on pereira scale. No defects on color images. ANY DEEP VENOUS INSUFFICIENCY: Not evaluated. ANY EVIDENCE POPLITEAL CYST: No. OTHER: No other significant finding. IMPRESSION: NO EVIDENCE DVT OR SVT IN EITHER LEG. TECHNICAL DOCUMENTATION: JOB ID: [id number] [employer]- All Rights Reserved Reading location - IP/workstation name: [email or web address]
--- NOTE | 2018-04-23 13:10 | EKG REPORT ---
SEVERITY:- NORMAL ECG - SINUS RHYTHM : Confirmed by: Lorelei Galloway MD 23-Apr-2018 13:09:51
[2018-04-23] MEDS ORDERED: HYDROCODONE/ACETAMINOPHEN 5-325 MG TABLET PO ONE (14:52)
--- NOTE | 2018-04-23 16:45 | RADIOLOGY REPORT (SQ) ---
EXAM DESCRIPTION: CHEST SINGLE VIEW COMPLETED DATE/TIME: 04/23/2018 11:22 am REASON FOR STUDY: cough COMPARISON: None. EXAM PARAMETERS: NUMBER OF VIEWS: One view. TECHNIQUE: Digital Frontal radiographic views of the chest acquired. RADIATION DOSE: NA LIMITATIONS: None. FINDINGS: LUNGS AND PLEURA: Stable linear left mid lung opacities, likely atelectasis/ scarring. No new focal airspace disease, masses or pneumothorax. No pleural effusion. MEDIASTINUM AND HILAR STRUCTURES: No masses or contour abnormalities. HEART AND VASCULAR STRUCTURES: Enlarged, stable. Atherosclerotic aorta. BONES: No acute findings. HARDWARE: Left subclavian base cardiac pacer with leads overlying right atrium and right ventricle. Bilateral proximal humeral bone anchors. OTHER: No other significant finding. IMPRESSION: No evidence of acute cardiopulmonary process. TECHNICAL DOCUMENTATION: JOB ID: [id number] [employer]- All Rights Reserved Reading location - IP/workstation name: [email or web address]
--- NOTE | 2018-04-23 18:16 | RADIOLOGY REPORT (SQ) ---
EXAM DESCRIPTION: CT ABD/PELVIS WITH IV ORAL COMPLETED DATE/TIME: 04/23/2018 5:35 pm REASON FOR STUDY: s/p lumbar fusion, anemia, +occ stool COMPARISON: None. TECHNIQUE: CT scan of the abdomen and pelvis performed using helical scanning technique with dynamic intravenous contrast injection. No oral contrast. Images reviewed with lung, soft tissue, and bone windows. Reconstructed coronal and sagittal MPR images reviewed. Delayed images for evaluation of the urinary system also acquired. All images stored on PACS. All CT scanners at this facility use dose modulation, iterative reconstruction, and/or weight based d osing when appropriate to reduce radiation dose to as low as reasonably achievable (ALARA). [facility]: Dose Right [facility]: CareDose [facility]: Dose Right [facility]: Teradose 4D [facility]: Lumi [place] CONTRAST TYPE AND DOSE: contrast/concentration: Isovue 350.00 mg/ml; Total Contrast Delivered: 100.0 ml; Total Saline Delivered: 72.0 ml RENAL FUNCTION: BUN 10, creatinine 0.64 RADIATION DOSE: CT Rad equipment meets quality standard of care and radiation dose reduction techniq ues were employed. CTDIvol: 18.7 - 20.7 mGy. DLP: 3082 mGy-cm.. LIMITATIONS: None. FINDINGS: LOWER CHEST: There is atelectasis in the lung bases. No focal consolidation or effusions. LIVER: Normal size. No masses. No dilated ducts. SPLEEN: Normal size. No focal lesions. PANCREAS: No masses. No significant calcifications. No adjacent inflammation or peripancreatic fluid collections. Pancreatic duct not dilated. GALLBLADDER: Surgically absent. ADRENAL GLANDS: No significant masses or asymmetry. RIGHT KIDNEY AND URETER: No solid masses. No significant calcifications. No hydronephrosis or hyd roureter. There is a prominent extrarenal pelvis. LEFT KIDNEY AND URETER: No solid masses. No significant calcifications. No hydronephrosis or hydr oureter. There is a prominent extrarenal pelvis. AORTA AND VESSELS: No aneurysm. No dissection. Renal arteries, SMA, celiac without stenosis. RETROPERITONEUM: There is soft tissue attenuation along the left ileo psoas muscle. This is most con sistent with retroperitoneal hematoma. Largest diameter is 7.1 x 3.5 cm. Very small pockets of air are noted within the retroperitoneal bleed most likely iatrogenic. BOWEL AND PERITONEAL CAVITY: No masses or inflammatory changes. No free fluid or peritoneal masses. APPENDIX: Surgically absent. PELVIS: No mass. No free fluid. Normal bladder. ABDOMINAL WALL: No masses. No hernias. BONES: There are postsurgical changes in the lumbar spine. OTHER: No other significant finding. IMPRESSION: 1. Left retroperitoneal hematoma. Largest diameter is 7.1 x 3.5 cm. There are small p ockets of gas associated with the retroperitoneal hemorrhage. This is presumably secondary to recent back surgery. Clinical correlation is needed. 2. Postsurgical changes in the lumbar spine. COMMENT: This report was called to TAMAR TY NP at18:05 on 04/23/2018. This report was called to TAMAR TY NP at18:05 on 04/23/2018. TECHNICAL DOCUMENTATION: JOB ID: [id number] Quality ID # [id number]: Final reports with documentation of one or more dose reduction techniques (e.g., Au tomated exposure control, adjustment of the mA and/or kV according to patient size, use of iterative reconstruction technique) 2010 [employer]- All Rights Reserved Reading location - IP/workstation name: [email or web address]
[2018-04-23 18:21] LABS: HEMATOCRIT 25.4 % (36.0-47.0); HEMOGLOBIN 8.7 g/dL (12.0-15.5); MEAN CORPUSCULAR HEMOGLOBIN 31.4 pg (27.0-33.4); MEAN CORPUSCULAR HGB CONC 34.2 g/dL (32.0-36.0); MEAN CORPUSCULAR VOLUME 92 fl (80-97); PLATELET COUNT 314 10^3/uL (150-450); RED BLOOD COUNT 2.76 10^6/uL (3.72-5.28); RED CELL DISTRIBUTION WIDTH 14.4 % (11.5-14.0); WHITE BLOOD COUNT 10.7 10^3/uL (4.0-10.5)
[2018-04-23] MEDS ORDERED: NORMAL SALINE 1000 ML 1,000 ML IV ONE (19:16)
[2018-04-23 19:31] LABS: INTERNATIONAL RATION (INR) 0.98; PROTHROMBIN TIME 13.5 SEC (11.4-15.4)
[2018-04-23 19:32] LABS: PARTIAL THROMBOPLASTIN TIME 33.2 SEC (23.5-35.8)
[2018-04-23] MEDS ORDERED: IPRATROPIUM/ALBUTEROL 0.5-2.5 MG/3 ML AMPUL NEB ONE (19:47)
--- NOTE | 2018-04-23 20:02 | PDOC CONSULTATION ---
Consultation Consult Date: 04/23/18 Consult reason:: decreased hemoglobin post spinal surgery with hematoma on CT scan History of Present Illness Admission Date/PCP: ADE PAYNE MD Patient complains of: lumbar,leg pains and not feeling well History of Present Illness: ARTURO CHASE is a 77 year old female who had spinal surgery aweek ago at [place]. C/o not feeling well with lumbar/leg pains. Talked to patient's son who said patient had lost a lot of blood during this [address] scan in ED showing hematoma left lumbar area which supposedly is expected after this operation according to Ortho surgeon in [place]. Question of stool positive for blood. Patient with no diarrhea or bloody BM. Denies abdominal pains. Hb stable at 8.7 Patient apparently has a pacemaker. 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 Denies: Hiatal Hernia Musculoskeltal Medical History: Reports: Arthritis Hematology: Denies: Anemia, Sickle Cell Disease Past Surgical History Past Surgical History: Reports: Appendectomy, Cholecystectomy, Hysterectomy, Orthopedic Surgery - bilateral shoulder surgery, bilateral knee replacement, spinal fusion Denies: Amputation, Mastectomy, Pacemaker Social History Smoking Status: Never Smoker Family History Family History: Reviewed & Not Pertinent Parental Family History Reviewed: Yes Children Family History Reviewed: No Sibling(s) Family History Reviewed.: No Medication/Allergy Home Medications: Alprazolam [Xanax 0.25 Mg Tablet] 0.25 mg PO QHS 04/17/11 Atorvastatin Calcium [Lipitor 20 Mg Tablet] 20 mg PO QHS 04/17/11 Gabapentin [Neurontin] 600 mg PO TID 04/17/11 Levothyroxine Sodium [Synthroid 75 Mcg Tablet] 50 mcg PO DAILY 04/17/11 Acetaminophen [Tylenol 325 mg Tablet] 650 mg PO PRN PRN 11/07/11 Garlique 1 tab PO DAILY 11/07/11 Multivitamin [Multivitamins] 1 each PO DAILY 11/07/11 [place]-3 Fatty Acids/Fish Oil [Fish Oil 1,000 Mg Capsule] 1 each PO DAILY Aspirin [Aspirin 81 mg Chewable Tablet] 81 mg PO DAILY 11/06/12 Citalopram Hydrobromide [Celexa 20 mg Tablet] 20 mg PO DAILY 12/24/14 Furosemide 20 mg PO DAILY 12/24/14 Hydrocodone Bit/Acetaminophen [Hydrocodon-Acetaminophen 5-325] 1 each PO Q4H PRN 12/24/14 Olmesartan Medoxomil [Benicar] 2 tab PO QHS 09/20/16 Ketorolac Tromethamine [Toradol 10 mg Tablet] 10 mg PO Q6HP PRN #20 tablet 10/04 Allergies/Adverse Reactions: Penicillins Allergy (Severe, Verified 04/23/18 10:05) Anaphylaxis hydromorphone [From Dilaudid] Allergy (Verified 04/23/18 10:05) Review of Systems Constitutional: PRESENT: as per HPI Eyes: PRESENT: other - no visual/hearing changes Cardiovascular: PRESENT: other - no chest pains/cough Gastrointestinal: PRESENT: other - no pains Genitourinary: PRESENT: other - no dysuria Physical Exam Vital Signs: Temp Pulse Resp BP Pulse Ox 97.9 F 73 14 168/69 H 99 04/23/18 10:12 04/23/18 10:12 04/23/18 13:08 04/23/18 13:08 04/23/18 11:02 Intake & Output 04/22/18 04/23/18 04/24/18 06:59 06:59 06:59 Weight 87.8 kg General appearance: PRESENT: no acute distress Head exam: PRESENT: atraumatic Eye exam: PRESENT: conjunctiva pink Mouth exam: PRESENT: moist Neck exam: PRESENT: full ROM Respiratory exam: PRESENT: clear to auscultation monica Cardiovascular exam: PRESENT: RRR Pulses: PRESENT: normal radial pulses Vascular exam: PRESENT: normal capillary refill GI/Abdominal exam: PRESENT: soft Rectal exam: PRESENT: deferred Musculoskeletal exam: PRESENT: tenderness - hips,lumbar area Neurological exam: PRESENT: alert, oriented to person, oriented to place, oriented to time, oriented to situation Psychiatric exam: PRESENT: anxious Skin exam: PRESENT: normal color, warm Results Laboratory Results: 04/23/18 18:09 04/23/18 11:00 04/23/18 04/23/18 04/23/18 10:30 11:00 11:00 WBC 10.3 RBC 2.75 L Hgb 8.8 L Hct 25.2 L MCV 92 MCH 32.0 MCHC 35.0 RDW 13.9 Plt Count 312 Seg Neutrophils % Not Reportable Lymphocytes % Not Reportable Monocytes % Not Reportable Eosinophils % Not Reportable Basophils % Not Reportable Absolute Neutrophils Not Reportable Absolute Lymphocytes Not Reportable Absolute Monocytes Not Reportable Absolute Eosinophils Not Reportable Absolute Basophils Not Reportable Sodium 140.9 Potassium 3.3 L Chloride 103 Carbon Dioxide 28 Anion Gap 10 BUN 10 Creatinine 0.64 Est GFR ( Amer) > 60 Est GFR (Non-Af Amer) > 60 Glucose 128 H Calcium 9.5 Magnesium Total Bilirubin 0.7 AST 66 H ALT 87 H Alkaline Phosphatase 86 Total Protein 6.0 L Albumin 3.5 Lipase 30.4 Urine Color STRAW Urine Appearance CLEAR Urine pH 6.0 Ur Specific [place] 1.003 Urine Protein NEGATIVE Urine Glucose (UA) NEGATIVE Urine Ketones NEGATIVE Urine Blood NEGATIVE Urine Nitrite NEGATIVE Ur Leukocyte Esterase TRACE H Urine WBC (Auto) 3 Urine RBC (Auto) 0 Stool Occult Blood Blood Type Antibody Screen 04/23/18 04/23/18 04/23/18 11:00 13:30 18:09 WBC 10.7 H RBC 2.76 L Hgb 8.7 L Hct 25.4 L MCV 92 MCH 31.4 MCHC 34.2 RDW 14.4 H Plt Count 314 Seg Neutrophils % Lymphocytes % Monocytes % Eosinophils % Basophils % Absolute Neutrophils Absolute Lymphocytes Absolute Monocytes Absolute Eosinophils Absolute Basophils Sodium Potassium Chloride Carbon Dioxide Anion Gap BUN Creatinine Est GFR ( Amer) Est GFR (Non-Af Amer) Glucose Calcium Magnesium 2.2 Total Bilirubin AST ALT Alkaline Phosphatase Total Protein Albumin Lipase Urine Color Urine Appearance Urine pH Ur Specific [place] Urine Protein Urine Glucose (UA) Urine Ketones Urine Blood Urine Nitrite Ur Leukocyte Esterase Urine WBC (Auto) Urine RBC (Auto) Stool Occult Blood POSITIVE Blood Type Antibody Screen 04/23/18 18:25 WBC RBC Hgb Hct MCV MCH MCHC RDW Plt Count Seg Neutrophils % Lymphocytes % Monocytes % Eosinophils % Basophils % Absolute Neutrophils Absolute Lymphocytes Absolute Monocytes Absolute Eosinophils Absolute Basophils Sodium Potassium Chloride Carbon Dioxide Anion Gap BUN Creatinine Est GFR ( Amer) Est GFR (Non-Af Amer) Glucose Calcium Magnesium Total Bilirubin AST ALT Alkaline Phosphatase Total Protein Albumin Lipase Urine Color Urine Appearance Urine pH Ur Specific [place] Urine Protein Urine Glucose (UA) Urine Ketones Urine Blood Urine Nitrite Ur Leukocyte Esterase Urine WBC (Auto) Urine RBC (Auto) Stool Occult Blood Blood Type O NEGATIVE Antibody Screen NEGATIVE 04/23/18 04/23/18 11:00 11:00 Creatine Kinase 108 Troponin I < 0.012 Impressions: Abdomen/Pelvis CT 04/23/18 00:00 IMPRESSION: 1. Left retroperitoneal hematoma. Largest diameter is 7.1 x 3.5 cm. There are small pockets of gas associated with the retroperitoneal hemorrhage. This is presumably secondary to recent back surgery. Clinical correlation is needed. 2. Postsurgical changes in the lumbar spine. Chest X-Ray 04/23/18 10:28 IMPRESSION: No evidence of acute cardiopulmonary process. Venous Doppler Study 04/23/18 11:09 IMPRESSION: NO EVIDENCE DVT OR SVT IN EITHER LEG. Assessment & Plan - Diagnosis (1) Postoperative pain after spinal surgery Is this a current diagnosis for this admission?: Yes (2) Anemia Qualifiers: Other causes of anemia: acute posthemorrhagic Is this a current diagnosis for this admission?: Yes - Time Time Spent: 30 to 50 Minutes - Plan Summary Plan Summary: OK to be followed by Orthopedic surgeon on OPD basis OK to give a liter of IV fluids Check PT/INR and if normal ok to be discharge
[2018-04-23] MEDS ORDERED: ALBUTEROL SULFATE 0.083% NEB 2.5 MG/3 ML AMPUL NEB ONE (20:19)
[2018-04-23] MEDS ORDERED: ALBUTEROL SULFATE HFA (90 MCG/PUFF) 8 GM MDI (1 MDI/ER DISP) IH ONE (20:23)
[2018-04-23 21:12] VITALS: BP 175/90
== END 2018-04-23 21:32 | disposition home or self-care (01) ==
LOC: ER 10:04
DX: G89.18 Other acute postprocedural pain (principal); M79.18 Myalgia, other site; M54.9 Dorsalgia, unspecified; K66.1 Hemoperitoneum; E87.6 Hypokalemia; D62 Acute posthemorrhagic anemia; R06.2 Wheezing; R53.1 Weakness; Z98.1 Arthrodesis status; R63.0 Anorexia; R11.0 Nausea; Z87.892 Personal history of anaphylaxis; Z88.0 Allergy status to penicillin; Z88.5 Allergy status to narcotic agent; I10 Essential (primary) hypertension; Z85.51 Personal history of malignant neoplasm of bladder
CPT/HCPCS: 93005; 96376; 94640 ×2; 99285; 96361; 96374; 96375; 86900; 86901; 36415; 86850; 82550; 83690; 83735; 85025; 85027; 85610; 85730; 82272; 80053; 81001; 84484; 93970; 71045; 74177; 93010; J3010; J2405; J7030; A9270 ×4; J3490; J7620

== ENCOUNTER → 2018-04-25 | Outpatient (CLI) | payer MEDICARE ==
[2018-04-25 13:30] LABS: HEMOGLOBIN 8.6 g/dL (12.0-15.5); MEAN CORPUSCULAR HEMOGLOBIN 31.7 pg (27.0-33.4); MEAN CORPUSCULAR HGB CONC 34.5 g/dL (32.0-36.0); MEAN CORPUSCULAR VOLUME 92 fl (80-97); PLATELET COUNT 322 10^3/uL (150-450); RED BLOOD COUNT 2.72 10^6/uL (3.72-5.28); RED CELL DISTRIBUTION WIDTH 14.8 % (11.5-14.0); WHITE BLOOD COUNT 10.3 10^3/uL (4.0-10.5)
== END ==
LOC: OD 12:21
PROVIDERS: ATTEND Family Medicine
DX: D62 Acute posthemorrhagic anemia (principal); E87.6 Hypokalemia; R53.1 Weakness
CPT/HCPCS: 36415; 84132; 85027

== ENCOUNTER 2018-05-01 13:54 | Inpatient (IN) | payer MEDICARE ==
--- NOTE | 2018-05-01 14:53 | ER Document Report ---
ED General - General Chief Complaint: Altered Mental Status Stated Complaint: ALTERED MENTAL STATUS Time Seen by Provider: 05/01/18 14:31 Mode of Arrival: Ambulatory Information source: Patient, Relative Notes: 77-year-old female presents emergency department with altered mental status that started on Sunday. Patient's son noticed that she seemed confused. She was not sure how to take care of her son's insulin. She has been doing this for a while and struck him as an usual. He also noted that she was having difficulty speaking. She was having difficulty finding words. He noticed a delay in her speech. He contacted her family physician, Dr. Menendez. He went through the patient's prescriptions. She is currently on Xanax, oxycodone, gabapentin. Extra Pills were noticed to be missing. Dr. Menendez thought that the patient might of been overdosing on these medications. These pills were removed from the house. He wanted the patient to be monitored for 24 hours and if she did not improve then to go to the emergency department for evaluation. Son states that she has not had any of these medications in the last day. She still acting confused. Patient did have back surgery done on April 15 at [facility] by Dr. Higgins. There is been no complications with the surgery. Son denies any fever, chills. Patient was seen in the emergency department a week ago for pain to the left thigh and a hematoma at the base of the incision site. The patient's orthopedic surgeon, Dr. Higgins was consulted. He said that the incision hematoma would resolve. It has. Patient is currently on furosemide, citalopram, levothyroxine, losartan, gabapentin. Patient son states that she has been taking gabapentin for years. She is on her normal dose. Family denies any trauma or injury. TRAVEL OUTSIDE OF THE [place] IN LAST 30 DAYS: No - HPI Onset: Other - 2 days Quality of pain: No pain Severity: None Pain Level: Denies Associated symptoms: Other - confusion Exacerbated by: Denies Relieved by: Denies Similar symptoms previously: No Recently seen / treated by doctor: No - Related Data Allergies/Adverse Reactions: Penicillins Allergy (Severe, Verified 05/01/18 15:10) Anaphylaxis hydromorphone [From Dilaudid] Allergy (Verified 05/01/18 15:10) Past Medical History - General Information source: Patient, Relative - Social History Smoking Status: Former Smoker Family History: Reviewed & Not Pertinent - Past Medical History Cardiac Medical History: Reports: Hx Atrial Fibrillation, Hx Hypercholesterolemia, Hx Hypertension Denies: Hx Coronary Artery Disease, Hx Heart Attack Pulmonary Medical History: Denies: Hx Asthma, Hx Bronchitis, Hx COPD, Hx Pneumonia Neurological Medical History: Denies: Hx Cerebrovascular Accident, Hx Seizures Endocrine Medical History: Reports: Hx Hypothyroidism Renal/ Medical History: Denies: Hx Peritoneal Dialysis GI Medical History: Reports: Hx Hepatitis - HEP A IN 1972 MILD CASE. Denies: Hx Hiatal Hernia, Hx Ulcer Musculoskeletal Medical History: Reports Hx Arthritis Infectious Medical History: Reports: Hx Hepatitis - HEP A IN 1972 MILD CASE Past Surgical History: Reports: Hx Appendectomy, Hx Cardiac Surgery - Heart ablation, pacemaker, Hx Cholecystectomy, Hx Hysterectomy, Hx Open Heart Surgery - HEART ABLATION, Hx Orthopedic Surgery - bilateral shoulder surgery, bilateral knee replacement, spinal fusion. Denies: Hx Mastectomy, Hx Pacemaker - Immunizations Hx Diphtheria, Pertussis, Tetanus Vaccination: Yes - MORE THAN 10YRS Review of Systems - Review of Systems Constitutional: No symptoms reported EENT: No symptoms reported Cardiovascular: No symptoms reported Respiratory: No symptoms reported Gastrointestinal: No symptoms reported Genitourinary: No symptoms reported Musculoskeletal: No symptoms reported Skin: No symptoms reported Hematologic/Lymphatic: No symptoms reported Neurological/Psychological: Confusion Physical Exam - Vital signs Vitals: Resp Pulse Ox 13 100 05/01/18 14:03 05/01/18 14:03 - Notes Notes: PHYSICAL EXAMINATION: GENERAL: Well-appearing, well-nourished and in no acute distress. HEAD: Atraumatic, normocephalic. EYES: Pupils equal round and reactive to light, extraocular movements intact, conjunctiva are normal. ENT: Nares patent, oropharynx clear without exudates. Moist mucous membranes. NECK: Normal range of motion, supple without lymphadenopathy LUNGS: Breath sounds clear to auscultation bilaterally and equal. No wheezes rales or rhonchi. HEART: Regular rate and rhythm without murmurs ABDOMEN: Soft, nontender, nondistended abdomen. No guarding, no rebound. No masses appreciated. Female : deferred Musculoskeletal: Normal range of motion, no pitting or edema. No cyanosis. Incision site on the back is clean, dry, intact. No signs of infection. Patient does have left lateral thigh tenderness to palpation- chronic. NEUROLOGICAL: Cranial nerves grossly intact. Normal speech. Normal finger to nose. Normal sensory, motor exams PSYCH: Normal mood, normal affect. SKIN: Warm, Dry, normal turgor, no rashes or lesions noted. Course - Re-evaluation Re-evalutation: 05/01/18 15:22 EKG: Ventricular rate 78, NE interval 160, QRS duration 78, QTc 442, normal sinus rhythm. No ST segment elevation. 05/01/18 17:[address] was done and shows left sided sinus disease. No other acute process. White blood cell count is normal. Urinalysis is remarkable for urinary tract infection. Patient reports anaphylaxis to penicillins. She was given levofloxacin. Patient is currently stable. I would admit her to the doctor Elizabeth, the hospitalist, for further treatment. 05/01/18 17:47 - Vital Signs Vital signs: Temp Pulse Resp BP Pulse Ox 97.8 F 78 20 155/76 H 95 05/01/18 14:47 05/01/18 14:47 05/01/18 17:04 05/01/18 17:33 05/01/18 16:01 - Laboratory Result Diagrams: 05/01/18 15:00 05/01/18 15:00 Laboratory results interpreted by me: 05/01/18 05/01/18 05/01/18 15:00 15:00 15:52 RDW 15.7 H Plt Count 455 H Calcium 10.8 H AST 56 H ALT 71 H Urine Protein 100 H Ur Leukocyte Esterase LARGE H Salicylates < 1.0 L Acetaminophen < 10 L Discharge - Discharge Clinical Impression: Altered mental status Qualifiers: Altered mental status type: disorientation Qualified Code(s): R41.0 - Disorientation, unspecified Condition: Stable Disposition: ADMITTED INPATIENT Admitting Provider: Hospitalist Unit Admitted: Telemetry Referrals: DEJA MENENDEZ MD [Primary Care Provider] - Follow up as needed
[2018-05-01 15:25] LABS: ABSOLUTE BASOPHILS # (AUTO) 0.1 10^3/uL (0.0-0.2); ABSOLUTE EOSINOPHILS # (AUTO) 0.1 10^3/uL (0.0-0.6); ABSOLUTE LYMPHOCYTES (AUTO) 1.5 10^3/uL (0.5-4.7); ABSOLUTE MONOCYTES (AUTO) 0.9 10^3/uL (0.1-1.4); ABSOLUTE NEUT (AUTO) 7.3 10^3/uL (1.7-8.2); BASOPHILS % (AUTO) 0.7 % (0-2); EOSINOPHILS % (AUTO) 1.3 % (0-6); HEMATOCRIT 36.8 % (36.0-47.0); HEMOGLOBIN 12.4 g/dL (12.0-15.5); LYMPHOCYTES % (AUTO) 15.3 % (13-45); MEAN CORPUSCULAR HEMOGLOBIN 31.2 pg (27.0-33.4); MEAN CORPUSCULAR HGB CONC 33.7 g/dL (32.0-36.0); MEAN CORPUSCULAR VOLUME 93 fl (80-97); PLATELET COUNT 455 10^3/uL (150-450); RED BLOOD COUNT 3.98 10^6/uL (3.72-5.28); RED CELL DISTRIBUTION WIDTH 15.7 % (11.5-14.0); SEGMENTED NEUTROPHILS % (AUTO) 73.7 % (42-78); TOTAL CELLS COUNTED % (AUTO) 100 %; WHITE BLOOD COUNT 9.9 10^3/uL (4.0-10.5)
[2018-05-01 15:37] LABS: ALANINE AMINOTRANSFERASE 71 U/L (9-52); ALBUMIN 4.5 g/dL (3.5-5.0); ALKALINE PHOSPHATASE 126 U/L (38-126); ANION GAP 9 (5-19); ASPARTATE AMINO TRANSFERASE 56 U/L (14-36); BILIRUBIN,DIRECT 0.4 mg/dL (0.0-0.4); BILIRUBIN,TOTAL 1.1 mg/dL (0.2-1.3); BLOOD UREA NITROGEN 12 mg/dL (7-20); CALCIUM 10.8 mg/dL (8.4-10.2); CARBON DIOXIDE 28 mmol/L (22-30); CHLORIDE 104 mmol/L (98-107); GLUCOSE 101 mg/dL (75-110); POTASSIUM 4.2 mmol/L (3.6-5.0); SODIUM 141.4 mmol/L (137-145); TOTAL PROTEIN 7.7 g/dL (6.3-8.2)
[2018-05-01 15:39] LABS: ACETAMINOPHEN < 10 ug/mL (10-30); ALCOHOL < 10 mg/dL (NONE DETECTED); SALICYLATE < 1.0 mg/dL (2.0-20.0)
[2018-05-01 15:54] LABS: FREE T4 (FREE THYROXINE) 1.22 ng/dL (0.78-2.19)
[2018-05-01 16:08] LABS: THYROID STIMULATING HORMONE 4.07 uIU/mL (0.47-4.68)
[2018-05-01 16:09] LABS: APPEARANCE,URINE TURBID; BILIRUBIN,URINE NEGATIVE (NEGATIVE); COLOR,URINE YELLOW; GLUCOSE, URINE NEGATIVE (NEGATIVE); KETONES,URINE NEGATIVE (NEGATIVE); LEUKOCYTE ESTERASE,URINE LARGE (NEGATIVE); NITRITE,URINE NEGATIVE (NEGATIVE); PROTEIN,URINE 100 mg/dL (NEGATIVE); URINE SPECIFIC GRAVITY 1.008; UROBILINOGEN,URINE NEGATIVE mg/dL (<2.0)
[2018-05-01 16:21] LABS: URINE AMPHETAMINES SCREEN NEGATIVE; URINE BARBITURATES SCREEN NEGATIVE; URINE BENZODIAZEPINES SCREEN NEGATIVE; URINE COCAINE SCREEN NEGATIVE; URINE MARIJUANA (THC) SCREEN NEGATIVE; URINE METHADONE SCREEN NEGATIVE; URINE PHENCYCLIDINE SCREEN NEGATIVE
--- NOTE | 2018-05-01 16:41 | RADIOLOGY REPORT (SQ) ---
EXAM DESCRIPTION: CHEST SINGLE VIEW COMPLETED DATE/TIME: 05/01/2018 3:15 pm REASON FOR STUDY: painaltered mental status COMPARISON: 04/13/18 EXAM PARAMETERS: NUMBER OF VIEWS: One view. TECHNIQUE: Single frontal radiographic view of the chest acquired. RADIATION DOSE: NA LIMITATIONS: None. FINDINGS: LUNGS AND PLEURA: No opacities, masses or pneumothorax. No pleural effusion. MEDIASTINUM AND HILAR STRUCTURES: No masses. Contour normal. HEART AND VASCULAR STRUCTURES: Heart normal in size. Normal vasculature. BONES: No acute findings. HARDWARE: Cardiac unchanged. OTHER: No other significant finding. IMPRESSION: NO ACUTE RADIOGRAPHIC FINDING IN THE CHEST. TECHNICAL DOCUMENTATION: JOB ID: [id number] [email or web address]- All Rights Reserved Reading location - IP/workstation name: [email or web address]
--- NOTE | 2018-05-01 17:17 | RADIOLOGY REPORT (SQ) ---
EXAM DESCRIPTION: CT head without COMPLETED DATE/TIME: 05/01/2018 REASON FOR STUDY: Altered mental status COMPARISON: None. EXAM PARAMETERS: TECHNIQUE: Axial images acquired through the brain without intravenous contrast. I mages reviewed with bone, brain and subdural windows. Images stored on PACS. All CT scanners at this facility use dose modulation, iterative reconstruction, and/or weight based d osing when appropriate to reduce radiation dose to as low as reasonably achievable (ALARA). [facility]: Dose Right [facility]: SureCare [facility]: Dose Right [facility]: Teradose 4D [facility]: Nanostellar RADIATION DOSE: mGy. LIMITATIONS: None. FINDINGS: VENTRICLES: Normal size and contour. CEREBRUM: No masses. No hemorrhage. No midline shift. Normal pereira/white matter differentiation. N o evidence for acute infarction. CEREBELLUM: No masses. No hemorrhage. No alteration of density. No evidence for acute infarction. EXTRAAXIAL SPACES: No fluid collections. No masses. ORBITS AND GLOBE: No intra- or extraconal masses. Normal contour of globe without masses. CALVARIUM: No fracture. PARANASAL SINUSES: There is opacification of the left maxillary sinus, some of the ethmoid air cells on the left, and the left frontal sinus. SOFT TISSUES: No mass or hematoma. OTHER: No other significant finding. IMPRESSION: Left-sided sinus disease with no acute intracranial imaging findings. TECHNICAL DOCUMENTATION: JOB ID: [id number] [facility] [id number]: Final reports with documentation of one or more dose reduction techniques (e.g., Automate d exposure control, adjustment of the mA and/or kV according to patient size, use of iterative recons truction technique) 2010 [employer]- All Rights Reserved Reading location - IP/workstation name: [email or web address]
[2018-05-01] MEDS ORDERED: LEVOFLOXACIN 750 MG/D5W RTU 750 MG/150 ML RTUPB IV ONE (17:37)
--- NOTE | 2018-05-01 18:43 | EKG REPORT ---
SEVERITY:- NORMAL ECG - SINUS RHYTHM : Confirmed by: Sohail Rosales MD 01-May-2018 18:42:48
[2018-05-01] MEDS ORDERED: ONDANSETRON 4 MG TAB.RAPDIS PO PRN (20:31)
[2018-05-01] MEDS ORDERED: ACETAMINOPHEN 325 MG TABLET PO PRN (20:31)
[2018-05-01] MEDS ORDERED: DOCUSATE SODIUM 100 MG CAPSULE PO PRN (20:31)
[2018-05-01] MEDS ORDERED: ALPRAZOLAM 0.25 MG TABLET PO PRN (20:38)
--- NOTE | 2018-05-01 21:04 | PDOC H&P ---
History of Present Illness Admission Date/PCP: 05/01/18 18:12 DEJA WHITE MD Patient complains of: Confusion that started likely Sunday. There are intermittent windows of clarity. She recently had back surgery and she is having some back discomfort. History of Present Illness: ARTURO CHASE is a 77 year old female who had lumbosacral back surgery several weeks ago. Her son reports that on Sunday neighbors spoke to her and she had mild intermittent confusion. By Sunday it worsened slightly and seemed to have progressed even further yesterday. Her son reports that she does have windows of clarity and in fact in the emergency department she was feeling a little better. She did have recent back surgery. Neurosurgery saw her in a follow-up visit. The incision looked well. She in fact is supposed to be getting the riley out tomorrow but this is unlikely to occur. She was complaining of some tingling in her thighs bilaterally but I feel this is more related to her recent back surgery. Past Medical History Cardiac Medical History: Reports: Atrial Fibrillation, Hyperlipidema, Hypertension, Other - Sick sinus syndrome with ablation Denies: Coronary Artery Disease, Myocardial Infarction Pulmonary Medical History: Denies: Asthma, Bronchitis, Chronic Obstructive Pulmonary Disease (COPD), Pneumonia EENT Medical History: Reports: None Neurological Medical History: Reports: Other - Benign essential tremor Denies: Hemorrhagic CVA, Seizures Endocrine Medical History: Reports: Hypothyroidism Renal/ Medical History: Reports: Chronic Kidney Disease Renal/ History Note: Stage II. She sees Dr. Wyatt. 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 Denies: Hiatal Hernia Musculoskeltal Medical History: Reports: Arthritis Skin Medical History: Reports: None Psychiatric Medical History: Reports: Depression Traumatic Medical History: Reports: None Hematology: Denies: Anemia, Sickle Cell Disease Infectious Medical History: Reports: None Past Surgical History Past Surgical History: Reports: Appendectomy, Cholecystectomy, Hysterectomy, Or thopedic Surgery - bilateral shoulder surgery, bilateral knee replacement, spinal fusion, Pacemaker Denies: Amputation, Mastectomy Social History Information Source: Patient, Relative Lives with: Alone Smoking Status: Never Smoker Frequency of Alcohol Use: None Hx Recreational Drug Use: No Drugs: None Hx Prescription Drug Abuse: No - Advance Directive Resuscitation Status: Full Code Surrogate healthcare decision maker:: The patient does have an advance care directive. Her son Ish is the healthcare proxy in the event where the patient can no longer make decisions. Family History Family History: Reviewed & Not Pertinent, Malignancy Parental Family History Reviewed: Yes Children Family History Reviewed: Yes Sibling(s) Family History Reviewed.: Yes Medication/Allergy Home Medications: Alprazolam [Xanax 0.25 mg Tablet] 0.125 mg PO Q12HP PRN 05/01/18 Alprazolam [Xanax 0.25 mg Tablet] 0.375 mg PO QHS 05/01/18 Atorvastatin Calcium [Lipitor 20 mg Tablet] 20 mg PO QHS 05/01/18 Citalopram Hydrobromide [Celexa 40 mg Tablet] 40 mg PO DAILY 05/01/18 Furosemide [Lasix 20 mg Tablet] 10 mg PO DAILY 05/01/18 Gabapentin [Neurontin] 600 mg PO Q8 05/01/18 Hydrocodone Bit/Acetaminophen [Hydrocodon-Acetaminophen 5-325] 1 tab PO Q6HP PRN 05/01/18 Levothyroxine Sodium [Synthroid 0.05 mg Tablet] 0.05 mg PO Q6AM 05/01/18 Meloxicam [Mobic] 7.5 mg PO BIDP PRN 05/01/18 Olmesartan Medoxomil [Benicar] 10 mg PO QHS 05/01/18 Oxycodone HCl/Acetaminophen [Endocet 5-325 Tablet] 1 tab PO Q6HP PRN 05/01/18 Allergies/Adverse Reactions: Penicillins Allergy (Severe, Verified 05/01/18 15:10) Anaphylaxis hydromorphone [From Dilaudid] Allergy (Verified 05/01/18 15:10) Review of Systems Constitutional: PRESENT: fatigue Eyes: ABSENT: visual disturbances Ears: ABSENT: hearing changes Nose, Mouth, and Throat: PRESENT: other - Dry mouth Cardiovascular: ABSENT: chest pain, dyspnea on exertion, edema, palpitations Respiratory: ABSENT: cough, dyspnea, hemoptysis Gastrointestinal: PRESENT: nausea. ABSENT: abdominal pain, constipation, diarrhea, heartburn Genitourinary: ABSENT: dysuria, hematuria Musculoskeletal: PRESENT: back pain Integumentary: ABSENT: diaphoresis, erythema, lesions Neurological: PRESENT: tremor(s). ABSENT: abnormal speech, confusion, memory loss Psychiatric: PRESENT: anxiety Endocrine: ABSENT: cold intolerance, flushing, heat intolerance Hematologic/Lymphatic: ABSENT: easy bruising, lymphadenopathy Allergic/Immunologic: ABSENT: seasonal rhinorrhea Physical Exam Vital Signs: Temp Pulse Resp BP Pulse Ox 98.4 F 82 13 167/59 H 97 05/01/18 18:50 05/01/18 17:47 05/01/18 20:00 05/01/18 19:01 05/01/18 20:00 Intake & Output 04/30/18 05/01/18 05/02/18 06:59 06:59 06:59 Intake Total 150 Balance 150 Weight 97.8 kg General appearance: PRESENT: no acute distress, cooperative, obese Head exam: PRESENT: atraumatic, normocephalic Eye exam: PRESENT: conjunctiva pink, EOMI. ABSENT: scleral icterus Ear exam: PRESENT: normal external ear exam Mouth exam: PRESENT: dry mucosa Neck exam: ABSENT: carotid bruit, JVD, lymphadenopathy Respiratory exam: PRESENT: clear to auscultation monica, symmetrical, unlabored. ABSENT: crackles, rales, rhonchi, wheezes Cardiovascular exam: PRESENT: RRR, +S1, +S2 Pulses: PRESENT: normal radial pulses, normal dorsalis pedis pul Vascular exam: PRESENT: normal capillary refill GI/Abdominal exam: PRESENT: normal bowel sounds, soft. ABSENT: ascites, distended, guarding, tenderness Rectal exam: PRESENT: deferred Extremities exam: ABSENT: calf tenderness, pedal edema Musculoskeletal exam: PRESENT: normal inspection Neurological exam: PRESENT: alert, awake, oriented to person, oriented to place, oriented to situation, CN II-XII grossly intact Psychiatric exam: PRESENT: anxious, appropriate affect Focused psych exam: ABSENT: delusional, restlessness Skin exam: PRESENT: dry, normal color, warm, other - Incisions from recent surgeries. [place] in place.. ABSENT: abrasion, cyanosis Results Laboratory Results: 05/01/18 15:00 05/01/18 15:00 05/01/18 05/01/18 05/01/18 15:00 15:00 15:00 WBC 9.9 RBC 3.98 Hgb 12.4 Hct 36.8 MCV 93 MCH 31.2 MCHC 33.7 RDW 15.7 H Plt Count 455 H Seg Neutrophils % 73.7 Lymphocytes % 15.3 Monocytes % 9.0 Eosinophils % 1.3 Basophils % 0.7 Absolute Neutrophils 7.3 Absolute Lymphocytes 1.5 Absolute Monocytes 0.9 Absolute Eosinophils 0.1 Absolute Basophils 0.1 Sodium 141.4 Potassium 4.2 Chloride 104 Carbon Dioxide 28 Anion Gap 9 BUN 12 Creatinine 0.77 Est GFR ( Amer) > 60 Est GFR (Non-Af Amer) > 60 Glucose 101 Calcium 10.8 H Total Bilirubin 1.1 AST 56 H ALT 71 H Alkaline Phosphatase 126 Total Protein 7.7 Albumin 4.5 TSH 4.07 Free T4 1.22 Urine Color Urine Appearance Urine pH Ur Specific [place] Urine Protein Urine Glucose (UA) Urine Ketones Urine Blood Urine Nitrite Ur Leukocyte Esterase Urine WBC (Auto) Urine RBC (Auto) 05/01/18 15:52 WBC RBC Hgb Hct MCV MCH MCHC RDW Plt Count Seg Neutrophils % Lymphocytes % Monocytes % Eosinophils % Basophils % Absolute Neutrophils Absolute Lymphocytes Absolute Monocytes Absolute Eosinophils Absolute Basophils Sodium Potassium Chloride Carbon Dioxide Anion Gap BUN Creatinine Est GFR ( Amer) Est GFR (Non-Af Amer) Glucose Calcium Total Bilirubin AST ALT Alkaline Phosphatase Total Protein Albumin TSH Free T4 Urine Color YELLOW Urine Appearance TURBID Urine pH 7.0 Ur Specific [place] 1.008 Urine Protein 100 H Urine Glucose (UA) NEGATIVE Urine Ketones NEGATIVE Urine Blood NEGATIVE Urine Nitrite NEGATIVE Ur Leukocyte Esterase LARGE H Urine WBC (Auto) >182 Urine RBC (Auto) 13 05/01/18 15:00 Troponin I < 0.012 Impressions: Chest X-Ray 05/01/18 14:47 IMPRESSION: NO ACUTE RADIOGRAPHIC FINDING IN THE CHEST. Head CT 05/01/18 14:47 IMPRESSION: Left-sided sinus disease with no acute intracranial imaging findings. Assessment & Plan - Diagnosis (1) Acute cystitis Qualifiers: Hematuria presence: without hematuria Qualified Code(s): N30.00 - Acute cystitis without hematuria Is this a current diagnosis for this admission?: Yes Plan: Urine culture is pending. I have placed the patient on levofloxacin. Urine cultures are pending. I will change the antibiotic if indicated by the urine culture results. (2) Encephalopathy, metabolic Is this a current diagnosis for this admission?: Yes Plan: This is been intermittent and most likely from the urinary infection. Blood cultures are pending as well. After her back surgery the patient was on narcotic analgesia along with her benzodiazepine therapy and gabapentin. Enough time is past that it is unlikely that those are contributing to her current intermittent confusion. (3) Back pain, lumbosacral Is this a current diagnosis for this admission?: Yes Plan: From recent lumbosacral surgery. We will try Ultram as she would rather not be on oxycodone or hydrocodone. She is already on gabapentin. She is due to see the neurosurgeon to have her riley removed. (4) Essential hypertension Is this a current diagnosis for this admission?: Yes Plan: We will continue her furosemide and angiotensin receptor addi therapy. (5) Hyperlipidemia Qualifiers: Hyperlipidemia type: pure hypercholesterolemia Qualified Code(s): E78.00 - Pure hypercholesterolemia, unspecified; E78.0 - Pure hypercholesterolemia Is this a current diagnosis for this admission?: Yes Plan: We will continue her atorvastatin 20 mg daily. (6) Hypothyroidism Qualifiers: Hypothyroidism type: unspecified Qualified Code(s): E03.9 - Hypothyroidism, unspecified Is this a current diagnosis for this admission?: Yes Plan: Exact etiology is unknown. We will continue her levothyroxine 50 mcg daily. - Time Time Spent: 50 to 70 Minutes Medications reviewed and adjusted accordingly: Yes Anticipated discharge: Home - Inpatient Certification Based on my medical assessment, after consideration of the patient's comorbidities, presenting symptoms, or acuity I expect that the services needed warrant INPATIENT care.: Yes I certify that my determination is in accordance with my understanding of Medicare's requirements for reasonable and necessary INPATIENT services [42 CFR 412.3e].: Yes Medical Necessity: Need For IV Fluids, Need for Pain Control, Need for IV Antibiotics - Plan Summary Plan Summary: Patient will be admitted for IV fluids and IV antibiotic therapy. We will monitor her for resolution of her encephalopathy. Her appetite has been quite poor as well and so with treatment of the infection I expect her appetite to improve.
[2018-05-01] MEDS ORDERED: OLMESARTAN MEDOXOMIL 10 MG PO SCH (22:00)
[2018-05-01] MEDS: GABAPENTIN 300 MG CAPSULE PO SCH (22:22)
[2018-05-01] MEDS: ATORVASTATIN CALCIUM 20 MG TABLET PO SCH (22:22)
[2018-05-01] MEDS: LOSARTAN POTASSIUM 25 MG TABLET PO SCH (22:22)
[2018-05-01] MEDS: NORMAL SALINE 1000 ML 1,000 ML IV PRN (22:23)
[2018-05-01] MEDS: ALPRAZOLAM 0.25 MG TABLET PO SCH (22:23)
[2018-05-01] MEDS: TRAMADOL HCL 50 MG TABLET PO PRN (23:45)
[2018-05-02 05:07] LABS: ABSOLUTE BASOPHILS # (AUTO) 0.1 10^3/uL (0.0-0.2); ABSOLUTE EOSINOPHILS # (AUTO) 0.2 10^3/uL (0.0-0.6); ABSOLUTE LYMPHOCYTES (AUTO) 1.4 10^3/uL (0.5-4.7); ABSOLUTE NEUT (AUTO) 6.9 10^3/uL (1.7-8.2); BASOPHILS % (AUTO) 0.9 % (0-2); EOSINOPHILS % (AUTO) 2.1 % (0-6); HEMATOCRIT 33.2 % (36.0-47.0); HEMOGLOBIN 11.1 g/dL (12.0-15.5); LYMPHOCYTES % (AUTO) 14.6 % (13-45); MEAN CORPUSCULAR HGB CONC 33.5 g/dL (32.0-36.0); MEAN CORPUSCULAR VOLUME 93 fl (80-97); MONOCYTES % (AUTO) 10.5 % (3-13); PLATELET COUNT 346 10^3/uL (150-450); RED BLOOD COUNT 3.59 10^6/uL (3.72-5.28); RED CELL DISTRIBUTION WIDTH 15.8 % (11.5-14.0); SEGMENTED NEUTROPHILS % (AUTO) 71.9 % (42-78); TOTAL CELLS COUNTED % (AUTO) 100 %; WHITE BLOOD COUNT 9.5 10^3/uL (4.0-10.5)
[2018-05-02 05:28] LABS: ANION GAP 8 (5-19); BLOOD UREA NITROGEN 14 mg/dL (7-20); CALCIUM 9.7 mg/dL (8.4-10.2); CARBON DIOXIDE 23 mmol/L (22-30); CHLORIDE 107 mmol/L (98-107); GLUCOSE 109 mg/dL (75-110); SODIUM 137.9 mmol/L (137-145)
[2018-05-02] MEDS: LEVOTHYROXINE SODIUM 0.05 MG TABLET PO SCH (05:39)
[2018-05-02] MEDS: TRAMADOL HCL 50 MG TABLET PO PRN ×2 (05:39→21:15)
[2018-05-02] MEDS: GABAPENTIN 300 MG CAPSULE PO SCH ×3 (05:39→21:17)
[2018-05-02] MEDS: FUROSEMIDE 20 MG TABLET PO SCH (09:36)
[2018-05-02] MEDS: NORMAL SALINE 1000 ML 1,000 ML IV PRN (09:36)
[2018-05-02] MEDS: CITALOPRAM HYDROBROMIDE 20 MG TABLET PO SCH (09:36)
[2018-05-02] MEDS: ENOXAPARIN SODIUM INJ 40 MG/0.4 ML DISP.SYRIN SUBCUT SCH (09:36)
[2018-05-02] MEDS ORDERED: (PENDING PHARMACY ID) (Citalopram Hydrobromide [Celexa 40 Mg Tablet] 40 MG) PO SCH (10:00)
--- NOTE | 2018-05-02 13:45 | PDOC PROGRESS REPORT ---
Subjective Progress Note for:: 05/02/18 Subjective:: The patient is feeling a little better today. She has had no episodes of confusion. She still has back pain from her recent surgery. Reason For Visit: ACUTE CYSTITIS,METABOLIC ENCEPHALOPATHY Physical Exam Vital Signs: Temp Pulse Resp BP Pulse Ox 97.2 F 76 16 146/67 H 99 05/02/18 12:20 05/02/18 12:20 05/02/18 12:20 05/02/18 12:20 05/02/18 12:20 Intake & Output 05/01/18 05/02/18 05/03/18 06:59 06:59 06:59 Intake Total 387 1999 Balance 387 1999 Weight 79.9 kg General appearance: PRESENT: no acute distress, cooperative, well-developed Respiratory exam: PRESENT: clear to auscultation monica, symmetrical, unlabored. ABSENT: prolonged expiratory phas, rales, rhonchi, wheezes Cardiovascular exam: PRESENT: RRR, +S1, +S2 GI/Abdominal exam: PRESENT: normal bowel sounds, soft. ABSENT: tenderness Neurological exam: PRESENT: alert, awake, oriented to person, oriented to place, oriented to time, oriented to situation, CN II-XII grossly intact Psychiatric exam: PRESENT: appropriate affect, normal mood. ABSENT: agitated, anxious Focused psych exam: ABSENT: restlessness Skin exam: PRESENT: other - Lumbar incision is healing nicely. [place] are in place. There is some redness along the margins of the riley. There is no fl uctuance. Results Laboratory Results: 05/02/18 04:46 05/02/18 04:46 05/01/18 05/01/18 05/01/18 15:00 15:00 15:00 WBC 9.9 RBC 3.98 Hgb 12.4 Hct 36.8 MCV 93 MCH 31.2 MCHC 33.7 RDW 15.7 H Plt Count 455 H Seg Neutrophils % 73.7 Lymphocytes % 15.3 Monocytes % 9.0 Eosinophils % 1.3 Basophils % 0.7 Absolute Neutrophils 7.3 Absolute Lymphocytes 1.5 Absolute Monocytes 0.9 Absolute Eosinophils 0.1 Absolute Basophils 0.1 Sodium 141.4 Potassium 4.2 Chloride 104 Carbon Dioxide 28 Anion Gap 9 BUN 12 Creatinine 0.77 Est GFR ( Amer) > 60 Est GFR (Non-Af Amer) > 60 Glucose 101 Calcium 10.8 H Magnesium Total Bilirubin 1.1 AST 56 H ALT 71 H Alkaline Phosphatase 126 Total Protein 7.7 Albumin 4.5 TSH 4.07 Free T4 1.22 Urine Color Urine Appearance Urine pH Ur Specific [place] Urine Protein Urine Glucose (UA) Urine Ketones Urine Blood Urine Nitrite Ur Leukocyte Esterase Urine WBC (Auto) Urine RBC (Auto) 05/01/18 05/02/18 05/02/18 15:52 04:46 04:46 WBC 9.5 RBC 3.59 L Hgb 11.1 L Hct 33.2 L MCV 93 MCH 31.0 MCHC 33.5 RDW 15.8 H Plt Count 346 Seg Neutrophils % 71.9 Lymphocytes % 14.6 Monocytes % 10.5 Eosinophils % 2.1 Basophils % 0.9 Absolute Neutrophils 6.9 Absolute Lymphocytes 1.4 Absolute Monocytes 1.0 Absolute Eosinophils 0.2 Absolute Basophils 0.1 Sodium 137.9 Potassium 4.0 Chloride 107 Carbon Dioxide 23 Anion Gap 8 BUN 14 Creatinine 0.73 Est GFR ( Amer) > 60 Est GFR (Non-Af Amer) > 60 Glucose 109 Calcium 9.7 Magnesium 2.3 Total Bilirubin AST ALT Alkaline Phosphatase Total Protein Albumin TSH Free T4 Urine Color YELLOW Urine Appearance TURBID Urine pH 7.0 Ur Specific [place] 1.008 Urine Protein 100 H Urine Glucose (UA) NEGATIVE Urine Ketones NEGATIVE Urine Blood NEGATIVE Urine Nitrite NEGATIVE Ur Leukocyte Esterase LARGE H Urine WBC (Auto) >182 Urine RBC (Auto) 13 05/02/18 04:46 WBC RBC Hgb Hct MCV MCH MCHC RDW Plt Count Seg Neutrophils % Lymphocytes % Monocytes % Eosinophils % Basophils % Absolute Neutrophils Absolute Lymphocytes Absolute Monocytes Absolute Eosinophils Absolute Basophils Sodium Potassium Chloride Carbon Dioxide Anion Gap BUN Creatinine Est GFR ( Amer) Est GFR (Non-Af Amer) Glucose Calcium Magnesium Total Bilirubin AST ALT Alkaline Phosphatase Total Protein Albumin TSH 3.57 Free T4 Urine Color Urine Appearance Urine pH Ur Specific [place] Urine Protein Urine Glucose (UA) Urine Ketones Urine Blood Urine Nitrite Ur Leukocyte Esterase Urine WBC (Auto) Urine RBC (Auto) 05/01/18 15:00 Troponin I < 0.012 Impressions: Chest X-Ray 05/01/18 14:47 IMPRESSION: NO ACUTE RADIOGRAPHIC FINDING IN THE CHEST. Head CT 05/01/18 14:47 IMPRESSION: Left-sided sinus disease with no acute intracranial imaging findings. Assessment & Plan - Diagnosis (1) Acute cystitis Qualifiers: Hematuria presence: without hematuria Qualified Code(s): N30.00 - Acute cystitis without hematuria Is this a current diagnosis for this admission?: Yes Plan: Urine cultures growing gram-negative bacilli. We will continue the levofloxacin until final identification and results are available. (2) Encephalopathy, metabolic Is this a current diagnosis for this admission?: Yes Plan: Most likely from the cystitis/gram-negative bacillus infection. Encephalopathy appears to be resolved. (3) Back pain, lumbosacral Is this a current diagnosis for this admission?: Yes Plan: Back is still sore. In fact she feels that it is impairing her gait. I will have physical therapy see the patient. In addition we will remove every other staple today and reassess tomorrow. If stable then we will remove the rest of the riley. We are trying to avoid narcotics. She does have low-dose tramadol as well as acetaminophen available. (4) Essential hypertension Is this a current diagnosis for this admission?: Yes Plan: Reasonable blood pressure control continue current medications (5) Hyperlipidemia Qualifiers: Hyperlipidemia type: pure hypercholesterolemia Qualified Code(s): E78.00 - Pure hypercholesterolemia, unspecified; E78.0 - Pure hypercholesterolemia Is this a current diagnosis for this admission?: Yes Plan: Continue statin therapy. (6) Hypothyroidism Qualifiers: Hypothyroidism type: unspecified Qualified Code(s): E03.9 - Hypothyroidism, unspecified Is this a current diagnosis for this admission?: Yes Plan: Continue levothyroxine. - Time Time Spent with patient: 15-24 minutes Medications reviewed and adjusted accordingly: Yes
[2018-05-02] MEDS ORDERED: DILTIAZEM HCL 30 MG TABLET PO ONE (15:00)
[2018-05-02] MEDS: DILTIAZEM HCL 30 MG TABLET PO SCH (17:31)
[2018-05-02] MEDS ORDERED: LEVOFLOXACIN 500 MG/D5W RTU 500 MG/100 ML RTUPB IV SCH (18:00)
[2018-05-02] MEDS: ALPRAZOLAM 0.25 MG TABLET PO SCH (21:16)
[2018-05-02] MEDS: LOSARTAN POTASSIUM 25 MG TABLET PO SCH (21:16)
[2018-05-02] MEDS: ATORVASTATIN CALCIUM 20 MG TABLET PO SCH (21:16)
[2018-05-03] MEDS: DILTIAZEM HCL 30 MG TABLET PO SCH ×3 (00:55→11:22)
[2018-05-03] MEDS: GABAPENTIN 300 MG CAPSULE PO SCH ×2 (05:49→14:18)
[2018-05-03] MEDS: LEVOTHYROXINE SODIUM 0.05 MG TABLET PO SCH (05:50)
[2018-05-03] MEDS: CITALOPRAM HYDROBROMIDE 20 MG TABLET PO SCH (09:25)
[2018-05-03] MEDS: ENOXAPARIN SODIUM INJ 40 MG/0.4 ML DISP.SYRIN SUBCUT SCH (09:25)
[2018-05-03] MEDS: FUROSEMIDE 20 MG TABLET PO SCH (09:25)
[2018-05-03 14:47] VITALS: BP 130/55
[2018-05-03] MEDS ORDERED: CEFUROXIME 250 MG TABLET PO SCH (18:00)
--- NOTE | 2018-05-04 17:24 | PDOC DISCHARGE SUMMARY ---
General - Admit/Disc Date/PCP Admission Date/Primary Care Provider: 05/01/18 18:12 DEJA WHITE MD Discharge Date: 05/03/18 - Discharge Diagnosis (1) Acute cystitis Is this a current diagnosis for this admission?: Yes Summary: The patient presented with intermittent confusion; was found to have urinary tract infection by urinalysis. WBCs are normal and the patient has remained afebrile throughout her admission. Blood cultures have no growth at 48 hours. Final urine culture revealed Proteus mirabilis with Macrobid and tetracycline resistances. The patient was empirically started on IV Levaquin; received 2 doses. She was transitioned to p.o. Cipro at discharge for completion of a 7-day course of therapy. (2) Back pain, lumbosacral Is this a current diagnosis for this admission?: Yes Summary: The patient recently underwent lumbosacral back surgery; continues to have intermittent discomfort. Narcotic medications are avoided secondary to recent episode of metabolic encephalopathy. She has had acceptable pain control with as needed Tylenol and tramadol. The patient's incision is well approximated and her riley were removed while she was inpatient on schedule. She is advised to follow-up with her spinal surgeon as scheduled. The patient is agreeable to home health physical therapy; discharge planning has arranged this to resume at time of discharge. (3) Encephalopathy, metabolic Is this a current diagnosis for this admission?: Yes Summary: Resolved; likely multifactorial secondary to acute cystitis, dehydration, and opiate use for management of her acute postoperative back pain. (4) Essential hypertension Is this a current diagnosis for this admission?: Yes Summary: Acceptable blood pressures utilizing her home dose antihypertensives. (5) Hyperlipidemia Is this a current diagnosis for this admission?: Yes Summary: The patient's home dose statin therapy was continued. (6) Hypothyroidism Is this a current diagnosis for this admission?: Yes Summary: Patient's home dose levothyroxine was continued. - Additional Information Resuscitation Status: Full Code Discharge Diet: Cardiac Discharge Activity: Activity As Tolerated, Balance Activity w/Rest, Slowly Increase Activity Prescriptions: Ciprofloxacin HCl [Cipro 250 mg Tablet] 1 tab PO BID #10 tab Diltiazem HCl [Cardizem 30 mg Tablet] 30 mg PO Q6 #180 tablet Tramadol HCl [Ultram 50 mg Tablet] 50 mg PO Q6HP PRN #30 tablet PRN Reason: Home Medications: Alprazolam [Xanax 0.25 mg Tablet] 0.125 mg PO Q12HP PRN 05/01/18 Alprazolam [Xanax 0.25 mg Tablet] 0.375 mg PO QHS 05/01/18 Atorvastatin Calcium [Lipitor 20 mg Tablet] 20 mg PO QHS 05/01/18 Citalopram Hydrobromide [Celexa 40 mg Tablet] 40 mg PO DAILY 05/01/18 Furosemide [Lasix 20 mg Tablet] 10 mg PO DAILY 05/01/18 Gabapentin [Neurontin] 600 mg PO Q8 05/01/18 Levothyroxine Sodium [Synthroid 0.05 mg Tablet] 0.05 mg PO Q6AM 05/01/18 Meloxicam [Mobic] 7.5 mg PO BIDP PRN 05/01/18 Olmesartan Medoxomil [Benicar] 10 mg PO QHS 05/01/18 Acetaminophen [Tylenol 325 mg Tablet] 650 mg PO Q4HP PRN tablet 05/03/18 Ciprofloxacin HCl [Cipro 250 mg Tablet] 1 tab PO BID #10 tab 05/03/18 Diltiazem HCl [Cardizem 30 mg Tablet] 30 mg PO Q6 #180 tablet 05/03/18 Docusate Sodium [Colace 100 mg Capsule] 100 mg PO BIDP PRN capsule 05/03/18 Tramadol HCl [Ultram 50 mg Tablet] 50 mg PO Q6HP PRN #30 tablet 05/03/18 History of Present Illness History of Present Illness: Per H&P by Dr. Horton: ARTURO CHASE is a 77 year old female who had lumbosacral back surgery several weeks ago. Her son reports that on Sunday neighbors spoke to her and she had mild intermittent confusion. By Sunday it worsened slightly and seemed to have progressed even further yesterday. Her son reports that she does have windows of clarity and in fact in the emergency department she was feeling a little better. She did have recent back surgery. Neurosurgery saw her in a follow-up visit. The incision looked well. She in fact is supposed to be getting the riley out tomorrow but this is unlikely to occur. She was complaining of some tingling in her thighs bilaterally but I feel this is more related to her recent back surgery. Hospital Course Hospital Course: The patient was admitted with UTI; she was supported with IV fluids and Levaquin. Her intermittent confusion rapidly improved. She is remained afebrile with a normal white count. Based upon urine culture and sensitivities, she is discharged on p.o. Cipro to complete a total 7-day course of therapy. At time of discharge, the patient is in stable condition. She is discharged home into the care of her family members with establishment of home health nursing and physical therapy. She is advised to follow-up with her primary care provider within the next 1-2 weeks and with her spinal surgeon as scheduled. She is also instructed to return to the emergency department as needed for any concerning symptoms. Physical Exam Vital Signs: Temp Pulse Resp BP Pulse Ox 98.0 F 82 19 101/84 100 05/03/18 13:48 05/03/18 13:48 05/03/18 13:48 05/03/18 13:48 05/03/18 13:48 Intake & Output 05/03/18 05/04/18 05/05/18 06:59 06:59 06:59 Intake Total 2568 320 Output Total 350 Balance 2218 320 Weight 82.2 kg General appearance: PRESENT: no acute distress, cooperative - Pleasant, well-d eveloped, well-nourished - Overweight Head exam: PRESENT: atraumatic, normocephalic Eye exam: PRESENT: conjunctiva pink, EOMI, PERRLA. ABSENT: scleral icterus Ear exam: PRESENT: normal external ear exam Mouth exam: PRESENT: moist, tongue midline Neck exam: ABSENT: carotid bruit, JVD, lymphadenopathy, thyromegaly Respiratory exam: PRESENT: clear to auscultation monica, symmetrical, unlabored. ABSENT: rales, rhonchi, wheezes Cardiovascular exam: PRESENT: RRR, +S1, +S2. ABSENT: diastolic murmur, rubs, systolic murmur Pulses: PRESENT: normal dorsalis pedis pul Vascular exam: PRESENT: normal capillary refill GI/Abdominal exam: PRESENT: normal bowel sounds, soft. ABSENT: distended, guarding, mass, organolmegaly, rebound, tenderness Rectal exam: PRESENT: deferred Extremities exam: PRESENT: full ROM. ABSENT: calf tenderness, clubbing, pedal edema Musculoskeletal exam: PRESENT: other - Surgical incision to lumbar spine is well approximated, healing well, no surrounding erythema, edema, or ecchymosis. [place] removed. Neurological exam: PRESENT: alert, awake, oriented to person, oriented to place, oriented to time, oriented to situation, CN II-XII grossly intact. ABSENT: motor sensory deficit Psychiatric exam: PRESENT: appropriate affect, normal mood. ABSENT: homicidal ideation, suicidal ideation Skin exam: PRESENT: dry, intact, warm. ABSENT: cyanosis, rash Results Laboratory Results: 05/02/18 04:46 05/02/18 04:46 05/01/18 15:00 Troponin I < 0.012 Impressions: Chest X-Ray 05/01/18 14:47 IMPRESSION: NO ACUTE RADIOGRAPHIC FINDING IN THE CHEST. Head CT 05/01/18 14:47 IMPRESSION: Left-sided sinus disease with no acute intracranial imaging findings. Qualifiers - * PATIENT BEING DISCHARGED WITH ANY OF THE FOLLOWING DIAGNOSIS: No Plan Discharge Plan: Discharge to home with home health nursing and physical therapy. Follow-up with primary care provider within 1 week. Follow-up with spinal surgeon as scheduled. Drink plenty of water and complete course of antibiotic therapy. Return to the emergency department as needed for concerning symptoms. Time Spent: Less than 30 Minutes
== END 2018-05-03 15:08 | disposition home health service (06) | DRG 308 ==
LOC: ER 13:54 → EH 18:12 → 4N 21:13
PROVIDERS: ADMIT Hospitalist; ATTEND Hospitalist
DX: I48.91 Unspecified atrial fibrillation (principal); G93.41 Metabolic encephalopathy; N30.00 Acute cystitis without hematuria; E78.5 Hyperlipidemia, unspecified; B96.4 Proteus (mirabilis) (morganii) as the cause of diseases classified elsewhere; E03.9 Hypothyroidism, unspecified; I12.9 Hypertensive chronic kidney disease with stage 1 through stage 4 chronic kidney disease, or unspecified chronic kidney disease; N18.9 Chronic kidney disease, unspecified; M19.90 Unspecified osteoarthritis, unspecified site; M54.5 Low back pain; Z96.653 Presence of artificial knee joint, bilateral; F32.9 Major depressive disorder, single episode, unspecified; Z90.49 Acquired absence of other specified parts of digestive tract; Z90.710 Acquired absence of both cervix and uterus; Z95.0 Presence of cardiac pacemaker; Z79.899 Other long term (current) drug therapy; Z88.0 Allergy status to penicillin; Z88.5 Allergy status to narcotic agent; Z98.890 Other specified postprocedural states
CPT/HCPCS: 36415; 70450; 71045; 80048; 80053; 80307; 81001; 83735; 84439; 84443; 84484; 85025; 87040; 87086; 87088; 87186; 93005; 93010; 94660; 99285; G8978-GP; G8979-GP; J1650; J1956; J3490; J7030

== ENCOUNTER → 2018-05-21 | Outpatient (CLI) | payer MEDICARE ==
[2018-05-21 09:42] LABS: APPEARANCE,URINE CLEAR; BILIRUBIN,URINE NEGATIVE (NEGATIVE); COLOR,URINE YELLOW; GLUCOSE, URINE NEGATIVE (NEGATIVE); KETONES,URINE NEGATIVE (NEGATIVE); LEUKOCYTE ESTERASE,URINE SMALL (NEGATIVE); NITRITE,URINE NEGATIVE (NEGATIVE); PROTEIN,URINE NEGATIVE (NEGATIVE); URINE SPECIFIC GRAVITY 1.016; UROBILINOGEN,URINE NEGATIVE mg/dL (<2.0)
[2018-05-21 09:46] LABS: ANION GAP 7 (5-19); BLOOD UREA NITROGEN 12 mg/dL (7-20); CARBON DIOXIDE 27 mmol/L (22-30); CHLORIDE 107 mmol/L (98-107); GLUCOSE 101 mg/dL (75-110); POTASSIUM 4.1 mmol/L (3.6-5.0); SODIUM 140.9 mmol/L (137-145)
[2018-05-22 17:36] LABS: A/G RATIO 1.2 (0.7-1.7); ALBUMIN 2 3.6 g/dL (2.9-4.4); BETA GLOBULINS 0.8 g/dL (0.7-1.3); MONOCLONAL SPIKE Not Observed g/dL (Not Observ); PROTEIN TOTAL SERUM 6.6 g/dL (6.0-8.5)
== END ==
LOC: OD 08:44
PROVIDERS: ATTEND Internal Medicine Nephrology
DX: N18.2 Chronic kidney disease, stage 2 (mild) (principal); E83.52 Hypercalcemia; E21.3 Hyperparathyroidism, unspecified
CPT/HCPCS: 36415; 80048; 81001; 83970; 84165

== ENCOUNTER → 2018-11-07 | Outpatient (CLI) | payer MEDICARE ==
[2018-11-07 10:32] LABS: ANION GAP 5 (5-19); BLOOD UREA NITROGEN 27 mg/dL (7-20); CALCIUM 10.1 mg/dL (8.4-10.2); CARBON DIOXIDE 28 mmol/L (22-30); CHLORIDE 106 mmol/L (98-107); CHOLESTEROL 181.19 mg/dL (0-200); GLUCOSE 95 mg/dL (75-110); POTASSIUM 4.5 mmol/L (3.6-5.0); SODIUM 138.8 mmol/L (137-145); TRIGLYCERIDES 139 mg/dL (<150)
[2018-11-07 10:43] LABS: DIRECT LDL 100 mg/dL (<100)
== END ==
LOC: OD 09:25
PROVIDERS: ATTEND Family Medicine
DX: E78.2 Mixed hyperlipidemia (principal); R53.83 Other fatigue; I10 Essential (primary) hypertension; Z79.899 Other long term (current) drug therapy
CPT/HCPCS: 36415; 80048; 80061; 82607; 83036; 84443

== ENCOUNTER → 2018-11-21 | Outpatient (CLI) | payer MEDICARE ==
[2018-11-21 10:51] LABS: APPEARANCE,URINE SLIGHTLY-CLOUDY; BILIRUBIN,URINE NEGATIVE (NEGATIVE); COLOR,URINE YELLOW; GLUCOSE, URINE NEGATIVE (NEGATIVE); KETONES,URINE NEGATIVE (NEGATIVE); LEUKOCYTE ESTERASE,URINE LARGE (NEGATIVE); NITRITE,URINE NEGATIVE (NEGATIVE); PROTEIN,URINE NEGATIVE (NEGATIVE); URINE SPECIFIC GRAVITY 1.016; UROBILINOGEN,URINE NEGATIVE mg/dL (<2.0)
[2018-11-21 11:08] LABS: BLOOD UREA NITROGEN 27 mg/dL (7-20); CALCIUM 10.4 mg/dL (8.4-10.2); CHLORIDE 106 mmol/L (98-107); GLUCOSE 95 mg/dL (75-110); POTASSIUM 4.8 mmol/L (3.6-5.0)
[2018-11-21 11:14] LABS: CARBON DIOXIDE 31 mmol/L (22-30); SODIUM 140.6 mmol/L (137-145)
[2018-11-21 11:18] LABS: ANION GAP 4 (5-19)
== END ==
LOC: OD 09:41
PROVIDERS: ATTEND Internal Medicine Nephrology
DX: I12.9 Hypertensive chronic kidney disease with stage 1 through stage 4 chronic kidney disease, or unspecified chronic kidney disease (principal); N18.2 Chronic kidney disease, stage 2 (mild)
CPT/HCPCS: 36415; 80048; 81001

== ENCOUNTER → 2019-03-20 | Outpatient (CLI) | payer MEDICARE | LOC: OD 11:07 | PROVIDERS: ATTEND Family Medicine | DX: E83.52 Hypercalcemia (principal) | CPT/HCPCS: 36415; 83970 ==

== ENCOUNTER 2019-04-04 13:13 | Emergency (ER) | payer MEDICARE ==
--- NOTE | 2019-04-04 13:25 | ER Document Report ---
ED Medical Screen (RME) - General Chief Complaint: Leg Swelling Stated Complaint: LEG SWELLING Time Seen by Provider: 04/04/19 13:20 Primary Care Provider: DEJA WHITE MD [Primary Care Provider] - Follow up as needed TRAVEL OUTSIDE OF THE [place] IN LAST 30 DAYS: No - Related Data Allergies/Adverse Reactions: Penicillins Allergy (Severe, Verified 04/04/19 13:25) Anaphylaxis hydromorphone [From Dilaudid] Allergy (Verified 04/04/19 13:25) Home Medications: Benicar. 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 Denies: Hx Hiatal Hernia, Hx Ulcer Musculoskeltal Medical History: Reports Hx Arthritis Psychiatric Medical History: Reports: Hx Depression Infectious Medical History: Reports: Hx Hepatitis - HEP A IN 1972 MILD CASE Past Surgical History: Reports: Hx Appendectomy, Hx Cardiac Surgery - Heart ablation, pacemaker, Hx Cholecystectomy, Hx Hysterectomy, Hx Open Heart Surgery - HEART ABLATION, Hx Orthopedic Surgery - bilateral shoulder surgery, bilateral knee replacement, spinal fusion, Hx Pacemaker. Denies: Hx Mastectomy - Immunizations Hx Diphtheria, Pertussis, Tetanus Vaccination: Yes - MORE THAN 10YRS Doctor's Discharge - Discharge Referrals: DEJA WHITE MD [Primary Care Provider] - Follow up as needed
--- NOTE | 2019-04-04 13:30 | ER Document Report ---
ED Medical Screen (RME) - General Chief Complaint: Leg Swelling Stated Complaint: LEG SWELLING Time Seen by Provider: 04/04/19 13:20 Primary Care Provider: DEJA WHITE MD [Primary Care Provider] - Follow up as needed TRAVEL OUTSIDE OF THE [place] IN LAST 30 DAYS: No - HPI Notes: 04/04/19 13:26 Patient is an 78-year-old female with history of A. fib (on baby aspirin), hypertension, hyperglyceridemia who presents complaining of bilateral lower extremity swelling over the past several days with more swelling to the left lower leg. Patient states that she does have some shortness of breath associated. Patient felt a little dizzy yesterday. She is still urinating normally and having normal bowel movements. Denies any prolonged immobilization, distance travel, recent surgery/trauma, personal cancer history, hormone use, smoking, or previous DVT/PE. No fever, chest pain, abdominal pain. I have treated and performed a rapid initial assessment of this patient. A comp rehensive ED assessment and evaluation of the patient, analysis of test results and completion of medical decision making process will be conducted by additional ED providers. PHYSICAL EXAMINATION: GENERAL: Well-appearing, well-nourished and in no acute distress. A&Ox4. Answers questions appropriately. LUNGS: Breath sounds clear to auscultation bilaterally and equal. No wheezes rales or rhonchi. Extremities: trace pitting RLE. 1+ pitting LLE, mild asymmetry (L>R). Debbie negative bilaterally. - Related Data Allergies/Adverse Reactions: Penicillins Allergy (Severe, Verified 04/04/19 13:25) Anaphylaxis hydromorphone [From Dilaudid] Allergy (Verified 04/04/19 13:25) Home Medications: Benicar. ASA Past Medical History - Social History Chew tobacco use (# tins/day): No Drug Abuse: None - Past Medical History Cardiac Medical History: Reports: Hx Atrial Fibrillation, Hx Hypercholesterolemia, Hx Hypertension Denies: Hx Coronary Artery Disease, Hx Heart Attack Pulmonary Medical History: Denies: Hx Asthma, Hx Bronchitis, Hx COPD, Hx Pneumonia Neurological Medical History: Denies: Hx Cerebrovascular Accident, Hx Seizures Endocrine Medical History: Reports: Hx Hypothyroidism Renal/ Medical History: Denies: Hx Peritoneal Dialysis GI Medical History: Reports: 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 Denies: Hx Hiatal Hernia, Hx Ulcer Musculoskeltal Medical History: Reports Hx Arthritis Psychiatric Medical History: Reports: Hx Depression Infectious Medical History: Reports: Hx Hepatitis - HEP A IN 1973 MILD CASE Past Surgical History: Reports: Hx Appendectomy, Hx Cardiac Surgery - Heart ablation, pacemaker, Hx Cholecystectomy, Hx Hysterectomy, Hx Open Heart Surgery - HEART ABLATION, Hx Orthopedic Surgery - bilateral shoulder surgery, bilateral knee replacement, spinal fusion, Hx Pacemaker. Denies: Hx Mastectomy - Immunizations Hx Diphtheria, Pertussis, Tetanus Vaccination: Yes - MORE THAN 10YRS Doctor's Discharge - Discharge Referrals: DEJA WHITE MD [Primary Care Provider] - Follow up as needed
--- NOTE | 2019-04-04 14:14 | RADIOLOGY REPORT (SQ) ---
EXAM DESCRIPTION: CHEST 2 VIEWS COMPLETED DATE/TIME: 04/04/2019 1:55 pm REASON FOR STUDY: SOB COMPARISON: AP view of the chest from 05/01/2018 EXAM PARAMETERS: NUMBER OF VIEWS: two views TECHNIQUE: Digital Frontal and Lateral radiographic views of the chest acquired. RADIATION DOSE: NA LIMITATIONS: none FINDINGS: LUNGS AND PLEURA: No consolidation, pleural effusion or pneumothorax MEDIASTINUM AND HILAR STRUCTURES: No mediastinal or hilar contour abnormality HEART AND VASCULAR STRUCTURES: Stable cardiomegaly. The pulmonary vasculature is within normal limit s BONES: Transpedicular and interbody fusion hardware in the lumbar spine. Status post bilateral rotat or cuff repair. HARDWARE: Intact dual lead left subclavian vein approach transvenous pacemaker. OTHER: No other finding. IMPRESSION: Cardiomegaly without a superimposed acute cardiopulmonary process. TECHNICAL DOCUMENTATION: JOB ID: [id number] [employer]- All Rights Reserved Reading location - IP/workstation name: [email or web address]
[2019-04-04 14:33] LABS: APPEARANCE,URINE CLEAR; BILIRUBIN,URINE NEGATIVE (NEGATIVE); COLOR,URINE YELLOW; GLUCOSE, URINE NEGATIVE (NEGATIVE); KETONES,URINE NEGATIVE (NEGATIVE); PROTEIN,URINE NEGATIVE (NEGATIVE); URINE SPECIFIC GRAVITY 1.012; UROBILINOGEN,URINE NEGATIVE mg/dL (<2.0)
[2019-04-04 14:41] LABS: ABSOLUTE EOSINOPHILS # (AUTO) 0.2 10^3/uL (0.0-0.6); ABSOLUTE LYMPHOCYTES (AUTO) 1.4 10^3/uL (0.5-4.7); ABSOLUTE MONOCYTES (AUTO) 0.7 10^3/uL (0.1-1.4); BASOPHILS % (AUTO) 0.6 % (0-2); HEMOGLOBIN 13.1 g/dL (12.0-15.5); LYMPHOCYTES % (AUTO) 17.2 % (13-45); MEAN CORPUSCULAR HEMOGLOBIN 31.6 pg (27.0-33.4); MEAN CORPUSCULAR HGB CONC 34.6 g/dL (32.0-36.0); MEAN CORPUSCULAR VOLUME 91 fl (80-97); MONOCYTES % (AUTO) 8.1 % (3-13); PLATELET COUNT 161 10^3/uL (150-450); RED BLOOD COUNT 4.16 10^6/uL (3.72-5.28); RED CELL DISTRIBUTION WIDTH 14.8 % (11.5-14.0); SEGMENTED NEUTROPHILS % (AUTO) 72.1 % (42-78); TOTAL CELLS COUNTED % (AUTO) 100 %; WHITE BLOOD COUNT 8.3 10^3/uL (4.0-10.5)
[2019-04-04 14:53] LABS: ALBUMIN 3.8 g/dL (3.5-5.0); ALKALINE PHOSPHATASE 100 U/L (38-126); ASPARTATE AMINO TRANSFERASE 28 U/L (14-36); BILIRUBIN,DIRECT 0.1 mg/dL (0.0-0.4); BILIRUBIN,TOTAL 0.6 mg/dL (0.2-1.3); BLOOD UREA NITROGEN 22 mg/dL (7-20); CALCIUM 9.6 mg/dL (8.4-10.2); CARBON DIOXIDE 30 mmol/L (22-30); CHLORIDE 105 mmol/L (98-107); GLUCOSE 85 mg/dL (75-110); TOTAL PROTEIN 6.8 g/dL (6.3-8.2)
[2019-04-04 15:01] LABS: POTASSIUM 3.8 mmol/L (3.6-5.0)
[2019-04-04 15:02] LABS: ANION GAP 4 (5-19)
[2019-04-04 15:05] LABS: NT PRO BNP 361 pg/mL (<450)
--- NOTE | 2019-04-04 15:07 | EKG REPORT ---
SEVERITY:- ABNORMAL ECG - SINUS BRADYCARDIA FIRST DEGREE AV BLOCK CONSIDER OLD TRUE POST MT. : Confirmed by: Sohail Rosales MD 04-Apr-2019 15:06:22
[2019-04-04] MEDS ORDERED: ACETAMINOPHEN 325 MG TABLET PO ONE (15:32)
--- NOTE | 2019-04-04 15:35 | ER Document Report ---
ED General - General Chief Complaint: Leg Swelling Stated Complaint: LEG SWELLING Time Seen by Provider: 04/04/19 13:20 Primary Care Provider: DEJA WHITE MD [Primary Care Provider] - Follow up as needed (call within the next few days, today if possible, still to discuss follow up for increasing your lasix dose to 20 a day to help decrease leg swelling. ) TRAVEL OUTSIDE OF THE [place] IN LAST 30 DAYS: No - HPI Notes: Source/reliability: Patient, [facility] records which are very incomplete/unable to see any of her outpatient notes only that she is prescribed a number of medications and that her primary care is Dr. knott 78f with h htn, patient reported remote history of pacemaker placement "programmed to pace if heart rate less than 45, per chart there is a prior diagnosis of sick sinus syndrome but not specified, prior falls per patient last one in few weeks ago, osteopenia and bone density surveys and administration of Prolia injections, chronic peripheral edema and use of 10 to 20 mg a day of Lasix for this reason she says. Denies any history of heart failure, 2017 spinal surgery, more note bilateral knee surgeries, followed by collar stitcher "for osteoarthritis and Prolia shots", who presents today accompanied by her son who lives with her brother reports that her leg swelling has not gone down as it usually does with the increase in her Lasix per her PCPs instruction. She is to take 1 whole 20 mg tablet instead of 10 mg on days when her bilateral, left greater than right, leg swelling has increased. She says she did this Sunday and and unlike usual it really has not decreased the amount of swelling. She denies any new trauma or falls or pain. She denies any new orthopnea or change in her exercise tolerance. She says her baseline is that she is able to walk around the house, the grocery and slows herself down if she gets short of breath and then she continue her activity and ambulation. She denies any passing out or near passing out. She says that is typical for her heart rate to be in the 40s when I ask about how she felt during the EKG which shows a sinus bradycardia cardia of 48 she reports she had no symptoms and that her pacemaker is programmed to pace at rates less than 45. She denies any other decrease in oral intake or difficulty urinating or changes in her urination. Her [facility] EMR last hospital admission was April 2018 for which she was treated for cystitis and a delirium. - Related Data Allergies/Adverse Reactions: Penicillins Allergy (Severe, Verified 04/04/19 13:25) Anaphylaxis hydromorphone [From Dilaudid] Allergy (Verified 04/04/19 13:25) Home Medications: Benicar. ASA Past Medical History - General Information source: Patient, [facility] Records - Social History Smoking Status: Never Smoker Chew tobacco use (# tins/day): No Drug Abuse: None Family History: Reviewed & Not Pertinent, Malignancy Patient has suicidal ideation: No Patient has homicidal ideation: No - Past Medical History Cardiac Medical History: Reports: Hx Atrial Fibrillation, Hx Hypercholesterolemia, Hx Hypertension, Other - Unspecified pacemaker device Denies: Hx Coronary Artery Disease, Hx Heart Attack Pulmonary Medical History: Denies: Hx Asthma, Hx Bronchitis, Hx COPD, Hx Pneumonia Neurological Medical History: Denies: Hx Cerebrovascular Accident, Hx Seizures Endocrine Medical History: Reports: Hx Hypothyroidism Renal/ Medical History: Denies: Hx Peritoneal Dialysis GI Medical History: Reports: Hx Hepatitis - HEP A IN 1972 MILD CASE. Denies: Hx Hiatal Hernia, Hx Ulcer Musculoskeletal Medical History: Reports Hx Arthritis, Reports Other - Prolia injections for osteopenia Psychiatric Medical History: Reports: Hx Depression Infectious Medical History: Reports: Hx Hepatitis - HEP A IN 1972 MILD CASE Past Surgical History: Reports: Hx Appendectomy, Hx Cardiac Surgery - Heart ablation, pacemaker, Hx Cholecystectomy, Hx Hysterectomy, Hx Open Heart Surgery - HEART ABLATION, Hx Orthopedic Surgery - bilateral shoulder surgery, bilateral knee replacement, spinal fusion, Hx Pacemaker, Other - mammary duct excision 2017 for cystic changes. Denies: Hx Mastectomy - Immunizations Hx Diphtheria, Pertussis, Tetanus Vaccination: Yes - MORE THAN 10YRS Review of Systems - Review of Systems Constitutional: denies: Chills, Diaphoresis, Fever, Malaise, Weakness, Weight gain - Does not check weights to determine Lasix dosing, Weight loss EENT: denies: Eye pain, Blurred vision, Double vision, Nose congestion, Vertigo Cardiovascular: denies: Chest pain, Palpitations, Orthopnea, Dyspnea, Syncope, Paroxysmal Nocturnal Dysp Respiratory: denies: Cough, Hurts to breathe, Short of breath, Stridor, Wheezing Gastrointestinal: denies: Abdomen distended, Abdominal pain, Diarrhea, Nausea, Vomiting, Constipation, Poor appetite, Poor fluid intake Genitourinary: No symptoms reported Musculoskeletal: denies: Joint pain, Joint swelling, Muscle pain, Muscle stiffness, Neck pain, Deformity Skin: No symptoms reported Hematologic/Lymphatic: denies: Easy bleeding, Easy bruising, Swollen glands Neurological/Psychological: denies: Confusion, Sensory change, Weakness, Gait changes, Numbness, Tingling Physical Exam - Vital signs Vitals: Temp Pulse Resp BP Pulse Ox 98.7 F 84 20 182/51 H 97 04/04/19 13:24 04/04/19 13:24 04/04/19 13:24 04/04/19 13:24 04/04/19 13:24 Reviewed triage vital signs, and remained stable during ED work-up and prior to discharge asymptomatic during her ECG showing heart rate of 48 which she says is very typical of her heart rate. - General General appearance: Alert In distress: None - HEENT Head: Normocephalic, Atraumatic. No: Tenderness Eyes: No: Pale conjunctiva, Scleral icterus Conjunctiva: No: Injected, Purulent discharge Extraocular movements intact: Yes Pupils: PERRL Neck: Supple. No: Lymphadenopathy, Neck mass, Thyromegally - Respiratory Chest status: Nontender. No: Pain on movement Breath sounds: No: Decreased air movement, Productive cough, Rales, Rhonchi, Wheezing Notes: Quiet precordium no heaves lifts thrills, no gross murmurs rubs gallops on auscultation. All extremities warm well perfused 1+ pitting edema bilateral l ower extremities left slightly greater than right, but preserved capillary refill no color changes to suggest low perfusion state distally. RaTE regular 70s palpable bilateral DP and PT pulses. No difficulty laying flat in the ED bed - Abdominal Inspection: No: Wounds Distension: No distension. No: Distended bladder Tenderness: Nontender. No: Guarding, Rebound Organomegaly: No: No organomegaly - Genitourinary Notes: No suprapubic or inguinal tenderness on palpation no CVA tenderness to percussion clear yellow urine per specimen - Back Back: Nontender. No: Tender, Deformity/step-off - Neurological Notes: Patient ambulatory with walker, alert interactive no difficulty with speech comprehension. Fine motor movements grossly intact bilateral upper and lower extremity, sensation to light touch symmetric and intact distally x4, no gross cranial nerve deficits, strength is symmetric 4 out of 4 at hip flexors, with dorsi plantarflexion, and in major muscle groups of upper extremity. - Skin Skin Temperature: Warm Skin Color: Normal Skin irregularity: negative: Decubitus ulcer, Lesion, Rash, Tender indurated area Course - Vital Signs Vital signs: Temp Pulse Resp BP Pulse Ox 98.3 F 84 14 160/73 H 80 L 04/04/19 17:07 04/04/19 13:24 04/04/19 17:06 04/04/19 17:07 04/04/19 17:07 - Laboratory Result Diagrams: 04/04/19 14:18 04/04/19 14:18 Laboratory results interpreted by me: 04/04/19 04/04/19 14:18 14:18 RDW 14.8 H Anion Gap 4 L BUN 22 H - EKG Interpretation by Me Additional EKG results interpreted by me: 04/04/19 15:30 EKG performed at 1336 PM today is sinus but rate is [address] elevations depressions compared to prior on 05/01/2018 there is no new axis change today her IA intervals are in the 230s consistent with first-degree AV block no other aberrancy. Compared to prior there is no other T wave changes, voltage changes. The rate on last year's EKG was 78. - Transfer of Care Notes: 04/04/19 18:04 Patient was seen initially in the triage area and labs, chest x-ray, EKG and bilateral lower extremity Doppler ultrasound to rule out DVT were ordered. I personally reviewed all of these studies which were within normal limits. Specifically her renal function was intact, chest x-ray showed no acute process. Patient continued to appear very well comfortable wants Doppler was confirmed as negative she and I discussed the plan that I felt it was safe in the next few days to continue the increased dose of her Lasix ensuring she takes care to stand up and make sure she is not feeling lightheaded since it can place her at increased risk for falls. I also wanted her to discuss with her primary care doctor some of her medications which can continue to make her at increased risk of falls, and to follow-up with him regarding the response of her leg edema that is chronic to the increase Lasix doses. She continues denies chest pain shortness of breath and felt at her baseline other than her leg swelling being slightly more so than usual despite her increased Lasix doses Discharge - Discharge Clinical Impression: Peripheral edema Condition: Fair Disposition: HOME, SELF-CARE Additional Instructions: Please call your primary care doctor's office to discuss your persistent increase in leg swelling despite taking double your daily Lasix. Today in the ER you had a negative ultrasound study for any clots in your lower legs. Your labs including your kidney function and your urinalysis were all within normal limits, therefore I think it is safe to continue the 20 mg dose of Lasix in the next few days if you continue to have the increase fluid on your leg. That can make you at more risk for falls, so please be careful upon transitioning to standing during this period of increasing her dose. I also like you to discuss some of your outpatient medications with your primary care doctor which that can also make you more at risk for falls, and if they might be discontinued if possible. Referrals: DEJA WHITE MD [Primary Care Provider] - Follow up as needed (call within the next few days, today if possible, still to discuss follow up for increasing your lasix dose to 20 a day to help decrease leg swelling. )
[2019-04-04 16:24] LABS: TROPONIN I < 0.012 ng/mL
--- NOTE | 2019-04-04 16:42 | RADIOLOGY REPORT (SQ) ---
EXAM DESCRIPTION: VENOUS UNILATERAL LOWER COMPLETED DATE/TIME: 04/04/2019 4:27 pm REASON FOR STUDY: swelling COMPARISON: None. TECHNIQUE: Dynamic and static pereira scale and color images acquired of the left leg venous system. Se lected spectral images acquired with additional compression and augmentation maneuvers. The contralat eral common femoral vein and saphenofemoral junction were also imaged. Images stored on PACS. LIMITATIONS: None. FINDINGS: COMMON FEMORAL: Normal phasicity, compression and augmentation. No visualized echogenic ma terial on pereira scale. No defects on color images. FEMORAL: Normal compression and augmentation. No visualized echogenic material on pereira scale. No defe cts on color images. POPLITEAL: Normal compression, augmentation. No visualized echogenic material on pereira scale. No defec ts on color images. CALF VESSELS: Normal compression, augmentation. No visualized echogenic material on pereira scale. No de fects on color images. GSV and SSV: Normal compression, augmentation. No visualized echogenic material on pereira scale. No def ects on color images. ANY DEEP VENOUS INSUFFICIENCY: No. ANY EVIDENCE OF POPLITEAL CYST: No. OTHER: No other finding. CONTRALATERAL COMMON FEMORAL VEIN AND SAPHENOFEMORAL JUNCTION: Normal phasicity, compression and augmentation. No visualized echogenic material on pereira scale. No de fects on color images. IMPRESSION: NO EVIDENCE OF DVT OR SVT IN THE LEFT LEG. TECHNICAL DOCUMENTATION: JOB ID: [id number] [employer]- All Rights Reserved Reading location - IP/workstation name: [email or web address]
[2019-04-04 17:11] VITALS: BP 160/73
== END 2019-04-04 17:12 | disposition home or self-care (01) ==
LOC: ER 13:13
DX: R60.0 Localized edema (principal); I10 Essential (primary) hypertension; M85.80 Other specified disorders of bone density and structure, unspecified site; I49.5 Sick sinus syndrome; Z95.0 Presence of cardiac pacemaker; Z79.899 Other long term (current) drug therapy; Z87.892 Personal history of anaphylaxis; Z88.0 Allergy status to penicillin; Z88.5 Allergy status to narcotic agent; Z88.6 Allergy status to analgesic agent
CPT/HCPCS: 93005; 99284; 36415; 84443; 85025; 80053; 81001; 84484; 83880; 93971; 71046; 93010; A9270

== ENCOUNTER → 2019-08-28 | Outpatient (CLI) | payer MEDICARE ==
[2019-08-28 10:50] LABS: BLOOD UREA NITROGEN 37 mg/dL (7-20); CALCIUM 10.6 mg/dL (8.4-10.2); GLUCOSE 94 mg/dL (75-110)
[2019-08-28 10:56] LABS: CARBON DIOXIDE 30 mmol/L (22-30); CHLORIDE 102 mmol/L (98-107)
[2019-08-28 11:03] LABS: ANION GAP 4 (5-19); POTASSIUM 4.6 mmol/L (3.6-5.0)
== END ==
LOC: OD 09:44
PROVIDERS: ATTEND Internal Medicine Nephrology
DX: I12.9 Hypertensive chronic kidney disease with stage 1 through stage 4 chronic kidney disease, or unspecified chronic kidney disease (principal); N18.2 Chronic kidney disease, stage 2 (mild); E83.52 Hypercalcemia; E21.3 Hyperparathyroidism, unspecified
CPT/HCPCS: 36415; 80048

== ENCOUNTER → 2019-11-28 | Outpatient (CLI) | payer MEDICARE ==
[2019-11-28 11:46] LABS: ANION GAP 5 (5-19); BLOOD UREA NITROGEN 20 mg/dL (7-20); CALCIUM 10.5 mg/dL (8.4-10.2); CARBON DIOXIDE 29 mmol/L (22-30); CHLORIDE 104 mmol/L (98-107); CHOLESTEROL 171.84 mg/dL (0-200); GLUCOSE 107 mg/dL (75-110); POTASSIUM 4.5 mmol/L (3.6-5.0); TRIGLYCERIDES 163 mg/dL (<150)
[2019-11-28 11:56] LABS: DIRECT LDL 94 mg/dL (<100)
[2019-11-28 12:01] LABS: VLDL CHOLESTEROL 32.6 mg/dL (10-31)
== END ==
LOC: OD 10:30
PROVIDERS: ATTEND Family Medicine
DX: E03.9 Hypothyroidism, unspecified (principal); E78.2 Mixed hyperlipidemia; I10 Essential (primary) hypertension; Z79.899 Other long term (current) drug therapy
CPT/HCPCS: 36415; 80048; 80061; 83036; 84443